=== PATIENT | female | born 1940 | race Caucasian/White ===

== ENCOUNTER → 2016-11-25 | Outpatient (CLI) | payer MEDICARE ==
[~2016-11-25] MED LIST: ALEN70TA3 PO; ALPR0.5T PO; ASPI-482 PO; CALC-98 PO; IOHEXOL 300 MG/ML 100ML VIAL. IV ONE; LORA1TAB47 PO; MESA0.37 PO; MESA1.2T PO; SIMV40TA3 PO; SULF500T7 PO
--- NOTE | 2016-11-25 16:05 | KCIC ---
Examination: CT chest with IV contrast HISTORY History of smoking, chronic cough. COMPARISON None available. TECHNIQUE Axial CT images were performed with IV contrast. Coronal sagittal reformats were performed. Exposure: One or more of the following dose reduction technique were utilized for this examination: 1. Automated exposure control. 2.Adjustment of MA and /or KV according to patient size. 3. Use of iterative reconstruction technique. Findings : The visualized thyroid gland grossly appears unremarkable. The central airways are patent. Mild aortic atherosclerosis. Diffuse coronary artery calcifications. Mild cardiomegaly. No evidence of pericardial effusion. Minimal biapical lung scarring changes identified. Mild emphysematous changes identified in the bilateral lungs. Bibasilar lung atelectasis or scarring changes identified. No evidence of pleural effusion or pneumothorax identified. There is a 4 millimeter pulmonary nodule identified in the right upper lobe of the lung best seen on series 6 image #25. Mild degenerative changes identified in the thoracic spine. There is minimal superior endplate compression change of T11 vertebral body, age indeterminate. The visualized liver, spleen, adrenals grossly appears unremarkable .The visualized pancreas grossly appears unremarkable. Partially visualized prominent appearing common bile duct. IMPRESSION - 4 millimeter pulmonary nodule right upper lobe of the lung. Followup CT chest in 1 year is recommended per Fleischner society guidelines. - Minimal bibasilar lung atelectasis. - Emphysematous changes identified in the bilateral lungs. - Coronary artery calcifications. - Partially visualized prominent appearing common bile duct. Correlate with lab values. - Age indeterminate mild superior endplate compression change of T11 vertebral body. Electronically signed by: Colt Shaw (Nov 25, 2016 16:03:11)
== END | disposition home or self-care (01) ==
LOC: KCIC CT 09:43
PROVIDERS: ATTEND Family Medicine
DX: R05 Cough (principal); F17.210 Nicotine dependence, cigarettes, uncomplicated; J11.1 Influenza due to unidentified influenza virus with other respiratory manifestations
CPT/HCPCS: 71260; 82565; Q9967

== ENCOUNTER → 2017-07-28 | Outpatient (CLI) | payer MEDICARE, OTHER ==
[~2017-07-28] MED LIST changes: -IOHEXOL 300 MG/ML 100ML VIAL. IV ONE; -MESA0.37 PO; +MESA0.372 PO
--- NOTE | 2017-07-28 15:05 | KCIC ---
HAND BILAT 3V Indication: Polyarthralgia. . Chronic pain and swelling of both hands. Comparison: No comparison is available. FINDINGS: Right hand Anterior dislocation of the proximal second phalanx relative to the metacarpal. Asymmetric narrowing of the second DIP joint. Severe primary osteoarthritis at the first carpometacarpal joint. No evidence of acute fracture or bone destruction. Bone demineralization. Left hand Anterior dislocation of the second proximal phalanx relative to the second metacarpal. Mild asymmetric narrowing of the second and third DIP joints Anterior subluxation of the third proximal phalanx relative to the third metacarpal. No evidence of an acute fracture. Generalized bone demineralization. IMPRESSION: 1. Bilateral second metacarpophalangeal joint dislocation. There is also subluxation of the third left MCP joint. 2. Degenerative disease at the DIP joints and at the right carpometacarpal joint. Electronically signed by: Zach Diallo MD (07/28/2017 3:02 PM) [facility]
== END | disposition home or self-care (01) ==
LOC: KCIC 14:08
PROVIDERS: ATTEND Internal Medicine Rheumatology
DX: S63.268A Dislocation of metacarpophalangeal joint of other finger, initial encounter (principal); M19.042 Primary osteoarthritis, left hand; M19.041 Primary osteoarthritis, right hand; X58.XXXA Exposure to other specified factors, initial encounter; Y93.89 Activity, other specified; Y92.89 Other specified places as the place of occurrence of the external cause; Y99.8 Other external cause status
CPT/HCPCS: 73130

== ENCOUNTER 2018-07-01 08:07 | Inpatient (IN) | payer MEDICARE, OTHER ==
[~2018-07-01] VITALS: Ht 154.9 cm; Wt 54.4 kg
[2018-07-01] VITALS (18 sets, daily range): BP systolic 72–99; BP diastolic 38–54
[~2018-07-01 08:07] MED LIST changes: +ASPI325T11 PO; +ATOR40TA59 PO; +CARV6.252 PO; +CLOP75TA PO; +LEVO250T7 PO; +LISI-338 PO
[2018-07-01] MEDS ORDERED: HEPARIN for IV BOLUS 10,000 UNIT/10 ML VIAL. ONE (08:16)
[2018-07-01 08:26] LABS: BASO # 0.2 x10^3/uL (0.0-0.2); BASO % 2 % (0-3); EOS # 0.5 x10^3/uL (0.0-0.7); EOS % 5 % (0-3); HEMATOCRIT 35.5 % (36.0-47.0); LYMPH # 4.4 x10^3/uL (1.0-4.8); LYMPH % 52 % (24-48); MEAN CORPUSCULAR HEMOGLOBIN 34 pg (25-35); MEAN CORPUSCULAR HGB CONC 34 g/dL (31-37); MEAN CORPUSCULAR VOLUME 99 fL (79-100); MONO # 0.5 x10^3/uL (0.0-1.1); MONO % 6 % (0-9); NEUT # 2.9 x10^3uL (1.8-7.7); NEUT % 34 % (31-73); PLATELET COUNT 284 x10^3/uL (140-400); RED BLOOD COUNT 3.57 x10^6/uL (3.50-5.40); RED CELL DISTRIBUTION WIDTH 15.2 % (11.5-14.5); WHITE BLOOD COUNT 8.4 x10^3/uL (4.0-11.0)
--- NOTE | 2018-07-01 08:29 | EKG ---
[facility] [address] [place] [address] Test Date: 2018-07-01 Test Time: 08:08:44 Pat Name: LYDIA RIVERA Department: Room: Gender: F Editor City: : 1940 Requested By: FARHANA FOSS Order Number: [id number] Reading MD: Calvin Holliday MD Measurements Intervals [place] Rate: 91 P: -1 [place]: 126 QRS: -45 QRSD: 184 T: 93 QT: 408 QTc: 504 Interpretive Statements SINUS RHYTHM LBBB Electronically Signed On 07-04-2018 11:23:55 CDT by Calvin Holliday MD
[2018-07-01] MEDS ORDERED: HEPARIN for IV BOLUS 10,000 UNIT/10 ML VIAL. IV ONE (08:30)
--- NOTE | 2018-07-01 08:35 | PHYS DOC ---
Past Medical History Past Medical History: Arthritis, Diverticulitis, High Cholesterol, Heart Disease Past Surgical History: Cholecystectomy Additional Past Surgical Histo: CARDIAC STENT, COLON RESECTION, CATARACTS Alcohol Use: None Drug Use: None Adult General Chief Complaint Chief Complaint: CHEST PAIN HPI HPI 78-year-old female with history of stenting in the past 2 wks presents emergency department today with chest pain and back pain. She arrives by EMS as a code STEMI alert due to EKG performed in the field. She was previously catheterized at our facility with stent placement. She reports having an allergic reaction and stopped taking all of her medication a few days ago. The pain is a pressure sensation that is nonradiating intermittent and mildly alleviated with the nitroglycerin that was given by EMS. EMS gave the patient aspirin and topical nitroglycerin. Review of systems is negative for abdominal pain fevers chills shortness of breath. All other review of systems is negative unless otherwise noted in history of present illness. ED course: 78-year-old female presenting to the emergency department today with chest pain. She was activated as a code STEMI. Dr. Dorado saw the patient immediately upon arrival in the emergency department. He reviewed the patient's EKG and past medical history. Decision was made to take the patient to cardiac catheterization given the patient's pain and recent discontinuation of medications. I had placed orders including a chest x-ray. We are unable to get a chest x-ray prior to sending the patient in the [facility]. I-STAT troponin is mildly positive at 0.02. I spoke to Dr. Rodríguez about the patient who accepts the patient to admission to the intensive care unit. The patient was then admitted for further treatment and care. Review of Systems Review of Systems SEE ABOVE. Current Medications Current Medications Current Medications Medications (Trade) Dose Ordered Sig/Shauna Start Time Stop Time Status Last Admin Dose Admin Bivalirudin (Angiomax) 250 mg STK-MED ONCE 07/01/18 08:37 07/01/18 08:38 DC Heparin Sodium (Porcine) (Heparin Sodium) 4,000 unit 1X ONCE 07/01/18 08:30 07/01/18 08:31 DC Heparin Sodium/ Sodium Chloride 500 ml @ As Directed STK-MED ONCE 07/01/18 08:26 07/01/18 08:27 DC Tirofiban/Sodium Chloride 100 ml @ As Directed STK-MED ONCE 07/01/18 08:54 07/01/18 08:55 DC Allergies Allergies Allergies Coded Allergies Type Severity Reaction Last Updated Verified No Known Drug Allergies 04/22/16 No Physical Exam Physical Exam SEE ABOVE Constitutional: Well developed, well nourished, pt appears uncomfortable but nontoxic. HENT: Normocephalic, atraumatic, bilateral external ears normal, oropharynx moist, no oral exudates, nose normal. [] Eyes: PERRLA, EOMI, conjunctiva normal, no discharge. Neck: Normal range of motion, no tenderness, supple, no stridor. [] Cardiovascular:Heart rate regular rhythm, no murmur [] Lungs & Thorax: Bilateral breath sounds clear to auscultation Abdomen: Bowel sounds normal, soft, no tenderness, no masses, no pulsatile masses. Skin: Warm, dry, no erythema, no rash. [] Back: No tenderness, no CVA tenderness. [] Extremities: No tenderness, no cyanosis, no clubbing, ROM intact, no edema. Neurologic: Alert and oriented X 3, normal motor function, normal sensory function, no focal deficits noted. [] Psychologic: Affect normal, judgement normal, mood normal. [] Current Patient Data Vital Signs Vital Signs Date Time Temp Pulse Resp B/P (MAP) Pulse Ox O2 Delivery O2 Flow Rate FiO2 07/01/18 08:18 114/60 (78) 07/01/18 08:07 97.5 99 16 92 Room Air 97.5 Lab Values Laboratory Tests Test 07/01/18 08:18 White Blood Count 8.4 x10^3/uL (4.0-11.0) Red Blood Count 3.57 x10^6/uL (3.50-5.40) Hemoglobin 12.0 g/dL (12.0-15.5) Hematocrit 35.5 % (36.0-47.0) L Mean Corpuscular Volume 99 fL (79-100) Mean Corpuscular Hemoglobin 34 pg (25-35) Mean Corpuscular Hemoglobin Concent 34 g/dL (31-37) Red Cell Distribution Width 15.2 % (11.5-14.5) H Platelet Count 284 x10^3/uL (140-400) Neutrophils (%) (Auto) 34 % (31-73) Lymphocytes (%) (Auto) 52 % (24-48) H Monocytes (%) (Auto) 6 % (0-9) Eosinophils (%) (Auto) 5 % (0-3) H Basophils (%) (Auto) 2 % (0-3) Neutrophils # (Auto) 2.9 x10^3uL (1.8-7.7) Lymphocytes # (Auto) 4.4 x10^3/uL (1.0-4.8) Monocytes # (Auto) 0.5 x10^3/uL (0.0-1.1) Eosinophils # (Auto) 0.5 x10^3/uL (0.0-0.7) Basophils # (Auto) 0.2 x10^3/uL (0.0-0.2) Prothrombin Time 15.7 SEC (11.7-14.0) H Prothrombin Time INR 1.3 (0.8-1.1) H PTT 28 SEC (24-38) Sodium Level 142 mmol/L (136-145) Potassium Level 3.7 mmol/L (3.5-5.1) Chloride Level 106 mmol/L (98-107) Carbon Dioxide Level 26 mmol/L (21-32) Anion Gap 10 (6-14) Blood Urea Nitrogen 8 mg/dL (7-20) Creatinine 0.6 mg/dL (0.6-1.0) Estimated GFR (Cockcroft-Gault) 96.4 Glucose Level 116 mg/dL (70-99) H Calcium Level 9.4 mg/dL (8.5-10.1) Total Bilirubin 0.6 mg/dL (0.2-1.0) Direct Bilirubin 0.1 mg/dL (0.0-0.2) Aspartate Amino Transferase (AST) 16 U/L (15-37) Alanine Aminotransferase (ALT) 18 U/L (14-59) Alkaline Phosphatase 66 U/L (46-116) POC Troponin I 0.02 ng/ml (<0.08) Troponin I Quantitative 0.033 ng/mL (0.000-0.055) OS-Yub-T-Type Natriuretic Peptide 5831 pg/mL (0-449) H Total Protein 6.5 g/dL (6.4-8.2) Albumin 3.4 g/dL (3.4-5.0) Lipase 190 U/L (73-393) Laboratory Tests 07/01/18 08:18 Laboratory Tests 07/01/18 08:18 EKG EKG EKG obtained and reviewed by myself shows ST segment elevation in leads V1 V2 and V3 V4 V5. This was called as a code STEMI.[] Radiology/Procedures Radiology/Procedures [] Course & Med Decision Making Course & Med Decision Making Pertinent Labs and Imaging studies reviewed. (See chart for details) [] Dragon Disclaimer Dragon Disclaimer This electronic medical record was generated, in whole or in part, using a voice recognition dictation system. Departure Departure Impression: Primary Impression: STEMI (ST elevation myocardial infarction) Disposition: ADMITTED INPATIENT Admitting Physician: Brady Rodríguez Condition: GUARDED Referrals: SHAHID KEARNEY MD (PCP) FARHANA FOSS MD Jul 01, 2018 08:35
[2018-07-01 08:37] LABS: CALCIUM 9.4 mg/dL (8.5-10.1); CREATININE 0.6 mg/dL (0.6-1.0); GFR 96.4; POTASSIUM 3.7 mmol/L (3.5-5.1)
[2018-07-01] MEDS ORDERED: BIVALIRUDIN 250 MG VIAL. IV ONE ×2 (08:37→09:30)
[2018-07-01 08:46] LABS: ALBUMIN 3.4 g/dL (3.4-5.0); DIRECT BILIRUBIN 0.1 mg/dL (0.0-0.2); PROTHROMBIN TIME PATIENT 15.7 SEC (11.7-14.0); TOTAL BILIRUBIN 0.6 mg/dL (0.2-1.0); TOTAL PROTEIN 6.5 g/dL (6.4-8.2)
[2018-07-01] MEDS ORDERED: TIROFIBAN 5MG -0.9% NS 100 ML IV ONE (08:54)
[2018-07-01] MEDS: TIROFIBAN 5MG -0.9% NS 100 ML IV PRN ×2 (08:59→13:24)
[2018-07-01] MEDS ORDERED: PRASUGREL 10 MG TABLET. ONE (09:24)
[2018-07-01] MEDS ORDERED: NITROGLYCERIN 200 MCG/2 ML SYRINGE FOR CATH/VASC LAB. ICAR ONE (09:30)
[2018-07-01] MEDS ORDERED: CONTRAST GIVEN. MC PRN (09:30)
[2018-07-01] MEDS ORDERED: fentaNYL PF VIAL 100 MCG/2 ML VIAL IV ONE (09:30)
[2018-07-01] MEDS ORDERED: IODIXANOL 320 MG/ML 100 ML VIAL. IART ONE (09:30)
[2018-07-01] MEDS ORDERED: PRASUGREL 10 MG TABLET. PO ONE (09:30)
[2018-07-01] MEDS ORDERED: LIDOCAINE 1% Multi-Dose 50 ML VIAL. INJ ONE (09:30)
[2018-07-01] MEDS ORDERED: MIDAZOLAM HCL/PF 2 MG/2 ML VIAL. IV ONE (09:30)
[2018-07-01] MEDS ORDERED: METOPROLOL TARTRATE 5 MG/5 ML VIAL. IVP ONE (09:31)
--- NOTE | 2018-07-01 09:51 | PDOC2 ---
CONSULT Date of Consult Date of Consult DATE: 07/01/18 TIME: 09:51 Reason for Consult Reason for Consult: Chest pain Referring Physician Referring Physician: Dr. Laureano Identification/Chief Complaint Chief Complaint Chest pain Source Source: Chart review, Patient History of Present Illness Reason for Visit: 78-year-old female with history of coronary artery disease who recently underwent PCI/HAN to LAD and PTCA to diagonal branch 06/07/18 presented complaining of chest and back pain that started this morning. EKG obtained in the field showed left bundle branch block and hence code STEMI was activated. Patient also complained of mild associated shortness of breath but denied any orthopnea, palpitations or syncope. Patient has ischemic cardiomyopathy with LVEF 15% and was discharged home on entresto to optimize medical therapy and LifeVest to prevent SCD. She however had angioedema involving face and neck and was started on Benadryl with improvement in symptoms. She was advised to stop taking Entresto but upon further interrogation she stated that she stopped taking all her medications completely, including Plavix. Past Medical History Cardiovascular: CAD, HTN, Hyperlipidemia Pulmonary: Other CENTRAL NERVOUS SYSTEM: Other GI: No pertinent hx Heme/Onc: Cancer Hepatobiliary: Hep A/B/C Psych: Anxiety Musculoskeletal: Osteoarthritis Rheumatologic: Rheumatoid arthritis Infectious disease: No pertinent hx Renal/: No pertinent hx Endocrine: No pertinent hx Past Surgical History Past Surgical History: Cholecystectomy, Cataract Removal, Colon Resection, Other Family History Family History: Stroke Social History ALCOHOL: occassional Drugs: None Lives: Alone Current Problem List Problem List Problems Medical Problems: (1) STEMI (ST elevation myocardial infarction) Status: Acute Current Medications Current Medications Current Medications Heparin Sodium (Porcine) (Heparin Sodium) 10,000 unit STK-MED ONCE .ROUTE ; Start 07/01/18 at 08:16; Stop 07/01/18 at 08:17; Status DC Heparin Sodium (Porcine) (Heparin Sodium) 4,000 unit 1X ONCE IV Last administered on 07/01/18at 08:30; Start 07/01/18 at 08:30; Stop 07/01/18 at 08 :31; Status DC Heparin Sodium/ Sodium Chloride 500 ml @ As Directed STK-MED ONCE .ROUTE ; Start 07/01/18 at 08:26; Stop 07/01/18 at 08:27; Status DC Bivalirudin (Angiomax) 250 mg STK-MED ONCE IV ; Start 07/01/18 at 08:37; Stop 07/01/18 at 08:38; Status DC Tirofiban/Sodium Chloride 100 ml @ As Directed STK-MED ONCE IV ; Start at 08:54; Stop 07/01/18 at 08:55; Status DC Nitroglycerin (Nitroglycerin) 200 mcg 1X ONCE ICAR Last administered on 09:26; Start 07/01/18 at 09:30; Stop 07/01/18 at 09:31; Status DC Heparin Sodium/ Sodium Chloride (HEPARIN for ARTERIAL LINE FLUSH) 1,000 unit 1X ONCE IART Last administered on 07/01/18at 09:26; Start 07/01/18 at 09:30; Stop 07/01/18 at 09:31; Status DC Midazolam HCl (Versed) 1 mg 1X ONCE IV Last administered on 07/01/18at 09:28; Start 07/01/18 at 09:30; Stop 07/01/18 at 09:31; Status DC Fentanyl Citrate (Fentanyl 2ml Vial) 25 mcg 1X ONCE IV Last administered on at 09:27; Start 07/01/18 at 09:30; Stop 07/01/18 at 09:31; Status DC Iodixanol (Visipaque 320) 100 ml 1X ONCE IART Last administered on 07/01/18 09:26; Start 07/01/18 at 09:30; Stop 07/01/18 at 09:31; Status DC Bivalirudin (Angiomax) 250 mg 1X ONCE IV Last administered on 07/01/18at 09:27 ; Start 07/01/18 at 09:30; Stop 07/01/18 at 09:31; Status DC Prasugrel (Effient) 60 mg 1X ONCE PO Last administered on 07/01/18at 09:28; Start 07/01/18 at 09:30; Stop 07/01/18 at 09:31; Status DC Tirofiban/Sodium Chloride 100 ml @ 0 mls/hr CONT PRN IV PER PROTOCOL Last administered on 07/01/18at 08:59; Start 07/01/18 at 09:30; Stop 07/02/18 at 03 :29 Lidocaine HCl (Lidocaine 1% 50ml Vial) 20 ml 1X ONCE INJ Last administered on 07/01/18at 09:26; Start 07/01/18 at 09:30; Stop 07/01/18 at 09:31; Status DC Info (CONTRAST GIVEN -- Rx MONITORING) 1 each PRN DAILY PRN MC SEE COMMENTS; Start 07/01/18 at 09:30; Stop 07/03/18 at 09:29 Prasugrel (Effient) 10 mg STK-MED ONCE .ROUTE ; Start 07/01/18 at 09:24; Stop 07/01/18 at 09:25; Status DC Dopamine HCl/ Dextrose 250 ml @ As Directed STK-MED ONCE IV ; Start 07/01/18 at 09:30; Stop 07/01/18 at 09:31; Status DC Metoprolol Tartrate (Lopressor Vial) 5 mg STK-MED ONCE IVP ; Start 07/01/18 at 09:31; Stop 07/01/18 at 09:32; Status DC Dopamine HCl/ Dextrose 250 ml @ 4.286 mls/ hr CONT PRN IV SEE I/O RECORD; Start 07/01/18 at 09:45 Active Scripts Active Levofloxacin 250 Mg Tablet 250 Mg PO DAILY06 3 Days Atorvastatin Calcium 40 Mg Tablet 40 Mg PO HS Aspirin Ec (Aspirin) 325 Mg Tablet.dr 325 Mg PO DAILYWBKFT 30 Days Lisinopril 5 Mg Tablet 5 Mg PO HS Carvedilol 6.25 Mg Tablet 3.125 Mg PO BIDWMEALS 30 Days Clopidogrel (Clopidogrel Bisulfate) 75 Mg Tablet 75 Mg PO DAILYWBKFT 30 Days Reported Fosamax (Alendronate Sodium) 70 Mg Tablet 70 Mg PO WEEKLY Calcium + Vitamin D Tablet (Calcium Carbonate/Vitamin D3) 1 Each Tablet 1 Each PO Xanax (Alprazolam) 0.5 Mg Tablet 0.5 Mg PO PRN Q6HRS PRN Lialda (Mesalamine) 1.2 Gm Tablet. 1.2 Gm PO Apriso (Mesalamine) 0.375 Gm Cap.er.24h 0.375 Gm PO Allergies Allergies: Coded Allergies: sacubitril (Verified Allergy, Intermediate, Swelling, 07/01/18) facial swelling valsartan (Verified Allergy, Intermediate, Swelling, 07/01/18) facial swelling ROS PSYCHOLOGICAL ROS: No: Hallucinations Eyes: No Loss of vision HEENT: No: Epistaxis Respiratory: YES: Shortness of breath; No: Hemoptysis Cardiovascular: yes Chest Pain Gastrointestinal: No Vomiting Genitourinary: No Hematuria Neurological: No Seizures Skin: No Rash Physical Exam General: Alert, mild distress HEENT: Atraumatic, PERRLA Lungs: Other (bilateral basal crepitations) Heart: Regular rate Abdomen: Soft, No tenderness Extremities: No edema Psych/Mental Status: Mood NL Vitals VITALS Vital Signs Date Time Temp Pulse Resp B/P (MAP) Pulse Ox O2 Delivery O2 Flow Rate FiO2 07/01/18 09:44 73 22 94 Nasal Cannula 4.0 07/01/18 08:18 114/60 (78) 07/01/18 08:07 97.5 97.5 Labs Labs Laboratory Tests Test 07/01/18 08:18 White Blood Count 8.4 x10^3/uL (4.0-11.0) Red Blood Count 3.57 x10^6/uL (3.50-5.40) Hemoglobin 12.0 g/dL (12.0-15.5) Hematocrit 35.5 % (36.0-47.0) Mean Corpuscular Volume 99 fL (79-100) Mean Corpuscular Hemoglobin 34 pg (25-35) Mean Corpuscular Hemoglobin Concent 34 g/dL (31-37) Red Cell Distribution Width 15.2 % (11.5-14.5) Platelet Count 284 x10^3/uL (140-400) Neutrophils (%) (Auto) 34 % (31-73) Lymphocytes (%) (Auto) 52 % (24-48) Monocytes (%) (Auto) 6 % (0-9) Eosinophils (%) (Auto) 5 % (0-3) Basophils (%) (Auto) 2 % (0-3) Neutrophils # (Auto) 2.9 x10^3uL (1.8-7.7) Lymphocytes # (Auto) 4.4 x10^3/uL (1.0-4.8) Monocytes # (Auto) 0.5 x10^3/uL (0.0-1.1) Eosinophils # (Auto) 0.5 x10^3/uL (0.0-0.7) Basophils # (Auto) 0.2 x10^3/uL (0.0-0.2) Prothrombin Time 15.7 SEC (11.7-14.0) Prothromb Time International Ratio 1.3 (0.8-1.1) Activated Partial Thromboplast Time 28 SEC (24-38) Sodium Level 142 mmol/L (136-145) Potassium Level 3.7 mmol/L (3.5-5.1) Chloride Level 106 mmol/L (98-107) Carbon Dioxide Level 26 mmol/L (21-32) Anion Gap 10 (6-14) Blood Urea Nitrogen 8 mg/dL (7-20) Creatinine 0.6 mg/dL (0.6-1.0) Estimated GFR (Cockcroft-Gault) 96.4 Glucose Level 116 mg/dL (70-99) Calcium Level 9.4 mg/dL (8.5-10.1) Total Bilirubin 0.6 mg/dL (0.2-1.0) Direct Bilirubin 0.1 mg/dL (0.0-0.2) Aspartate Amino Transf (AST/SGOT) 16 U/L (15-37) Alanine Aminotransferase (ALT/SGPT) 18 U/L (14-59) Alkaline Phosphatase 66 U/L (46-116) Bedside Troponin I 0.02 ng/ml (<0.08) Troponin I Quantitative 0.033 ng/mL (0.000-0.055) WY-Ntw-Y-Type Natriuretic Peptide 5831 pg/mL (0-449) Total Protein 6.5 g/dL (6.4-8.2) Albumin 3.4 g/dL (3.4-5.0) Lipase 190 U/L (73-393) Laboratory Tests Test 07/01/18 08:18 White Blood Count 8.4 x10^3/uL (4.0-11.0) Red Blood Count 3.57 x10^6/uL (3.50-5.40) Hemoglobin 12.0 g/dL (12.0-15.5) Hematocrit 35.5 % (36.0-47.0) Mean Corpuscular Volume 99 fL (79-100) Mean Corpuscular Hemoglobin 34 pg (25-35) Mean Corpuscular Hemoglobin Concent 34 g/dL (31-37) Red Cell Distribution Width 15.2 % (11.5-14.5) Platelet Count 284 x10^3/uL (140-400) Neutrophils (%) (Auto) 34 % (31-73) Lymphocytes (%) (Auto) 52 % (24-48) Monocytes (%) (Auto) 6 % (0-9) Eosinophils (%) (Auto) 5 % (0-3) Basophils (%) (Auto) 2 % (0-3) Neutrophils # (Auto) 2.9 x10^3uL (1.8-7.7) Lymphocytes # (Auto) 4.4 x10^3/uL (1.0-4.8) Monocytes # (Auto) 0.5 x10^3/uL (0.0-1.1) Eosinophils # (Auto) 0.5 x10^3/uL (0.0-0.7) Basophils # (Auto) 0.2 x10^3/uL (0.0-0.2) Prothrombin Time 15.7 SEC (11.7-14.0) Prothromb Time International Ratio 1.3 (0.8-1.1) Activated Partial Thromboplast Time 28 SEC (24-38) Sodium Level 142 mmol/L (136-145) Potassium Level 3.7 mmol/L (3.5-5.1) Chloride Level 106 mmol/L (98-107) Carbon Dioxide Level 26 mmol/L (21-32) Anion Gap 10 (6-14) Blood Urea Nitrogen 8 mg/dL (7-20) Creatinine 0.6 mg/dL (0.6-1.0) Estimated GFR (Cockcroft-Gault) 96.4 Glucose Level 116 mg/dL (70-99) Calcium Level 9.4 mg/dL (8.5-10.1) Total Bilirubin 0.6 mg/dL (0.2-1.0) Direct Bilirubin 0.1 mg/dL (0.0-0.2) Aspartate Amino Transf (AST/SGOT) 16 U/L (15-37) Alanine Aminotransferase (ALT/SGPT) 18 U/L (14-59) Alkaline Phosphatase 66 U/L (46-116) Bedside Troponin I 0.02 ng/ml (<0.08) Troponin I Quantitative 0.033 ng/mL (0.000-0.055) CQ-Mql-S-Type Natriuretic Peptide 5831 pg/mL (0-449) Total Protein 6.5 g/dL (6.4-8.2) Albumin 3.4 g/dL (3.4-5.0) Lipase 190 U/L (73-393) Assessment/Plan Assessment/Plan 1. Acute myocardial infarction: Patient has history of coronary artery disease with the recent drug-eluting stents placement to the left anterior descending artery and has stopped taking her dual antiplatelet therapy completely. EKG showed left bundle branch block that appears to be her baseline. Clinical picture suspicious for subacute stent thrombosis. We will proceed with emergent cardiac catheterization and possible angioplasty. Risks and benefits were explained and she is agreeable. Start aspirin, heparin, beta blockers and statin. 2. Ischemic cardiomyopathy with probable acute on chronic systolic and diastolic heart failure precipitated by acute myocardial infarction. LVEF 15% on recent 2-D echocardiogram. BNP elevated. We will diurese gently after cardiac catheterization. Resume beta blockers. She had angioedema from entresto. 3. Hyperlipidemia: Statin therapy Critical care time spent evaluating patient and talking to family 40 mins Thank you for your consultation SOHAIL CROCKER MD Jul 01, 2018 09:51
--- NOTE | 2018-07-01 09:51 | PDOC ---
MODERATE SEDATION ASSESSMENT RISKS/ALTERNATIVES Risks/Alternatives Risks and alternatives of this type of sedation and procedure discussed with: RISK/ALTERNATIVES: Patient H & P ON CHART H & P H & P on chart and reviewed for co-morbid conditions and appropriate labs. H&P ON CHART: Yes STATUS PREG STATUS ASSESSED: N/A MEDS/ALLERGIES REVIEWED Meds/Allergies Reviewed Medications and Allergies including time and route of recently administered narcotics and sedatives. MEDS/ALLERGIES REVIEWED: Yes ASA RATING ASA RATING: III AIRWAY ASSESSMENT Airway Assessment Airway patency, oral function limitations, presence of caps, crowns, dentures, partials, and ability to extend neck assessed. AIRWAY ASSESSMENT: Yes MALLAMPATI SCORE MALLAMPATI SCORE: II PRE-SEDATION ASSESSMENT PRE-SEDATION ASSESSMENT: Yes SOHAIL CROCKER MD Jul 01, 2018 09:51
[2018-07-01] MEDS ORDERED: NITROGLYCERIN SUBLINGUAL 0.4 MG BOTTLE OF 25. SL PRN (10:00)
[2018-07-01] MEDS ORDERED: ACETAMINOPHEN 325 MG TABLET. PO PRN (10:00)
--- NOTE | 2018-07-01 10:08 | CARD ---
MR#: [id number] Date of Study: 07/01/2018 Ordering Physician: SOHAIL CROCKER, Referring Physician: NICK HSU Tech: RT Jacinto (R) APPROVED REPORT Technologist: Lolis Rosales RT (R) Nurse: Guillermina Fatima R.N. Procedure(s) performed: 1. Left heart catheterization, selective coronary angiography and left ventr iculography 2. Successful PCI to left anterior descending artery and the diagonal branch Moderate SedationN:68 mins INDICATION The indication(s) include : 78-year-old female who recently underwent PCI/drug eluting stents placeme nt to left anterior descending artery and PTCA to the diagonal branch apparently stopped taking her m edications including Plavix few days ago and presented with chest pain that started this morning. 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 PROCEDURE NARRATIVE After explaining the risks, benefits and alternative options, informed consent was obtained from miguel ent. Patient was brought to the cardiac [facility] and her right groin was prepped and draped in the us ual fashion. 20 mL of 2% lidocaine was infiltrated into the skin and subcutaneous tissues for local a nesthesia. Arterial access was obtained in the right common femoral artery and a [place] sheath was inserted. [place] JL4 and [place] JR4 catheters placed to perform selective angiography of the left and right coronary arteries. [place] pigtail catheter was used to perform left ventriculography. Th e following findings were noted. FINDINGS 1. Hemodynamics: Left ventricle end-diastolic pressure 30 mmHg consistent with clinical picture of acute on chronic diastolic and systolic heart failure. No pullback gradient across the aortic valve. 2. Left ventriculography: Akinesis of the mid to distal anterior wall and the entire apical wall wi th ejection fraction estimated at 15%. 2+ mitral regurgitation seen. 3. Coronary angiography: a. The left main coronary artery arose from the left sinus of Valsalva, gave rise to the left anteri or descending and left circumflex arteries and did not show any significant stenosis. b. The left anterior descending artery showed 100% in-stent occlusion with heavy thrombus burden inv olving the mid and mid to distal segments. c. The left circumflex artery did not show any significant stenosis. d. The right coronary artery was a large and dominant vessel arising from the right sinus of Valsalv a that showed 40% stenosis in the midsegment. INTERVENTION The left main coronary artery was engaged with a 6 [place] EBU 3.5 guide catheter and the complete in- stent occlusion in the left anterior descending artery was crossed with a 0.014 inch [employer] g uidewire. Multiple inflations were then made within the mid and mid to distal segments using 2.5 x 12 mm trek balloon followed by 3.0 x 15 mm noncompliant NC Euphora balloons. The guidewire was then use d to cross into the diagonal branch and the ostium and proximal segments were dilated with a 2.75 x 1 2 mm NC euphora noncompliant balloon. Follow-up angiography showed resolution of the stenosis to 0% w ith good distal flow in the left anterior descending artery and the diagonal branch. Patient tolerate d the procedure well. Hemostasis in the right groin was achieved using Angio-Seal. There were no imme diate complications. Conclusion 1. 100% Complete in-stent occlusion (subacute thrombosis) involving the left anterior descending art geovani most probably from noncompliance with DAPT 2. Akinesis of the mid to distal anterior wall and the entire apical wall with ejection fraction est imated at 15% 3. Successful PTCA to the left anterior descending artery and also the diagonal branch Recommendations 1. Aspirin 325 mg daily 2. Effient 10 mg daily for preferably one year 3. Cardiovascular risk factor modification Signed by : Sohail Crocker, Electronically Approved : 07/01/2018 10:07:23
[2018-07-01] MEDS ORDERED: LIDOCAINE 1% Multi-Dose 50 ML VIAL. ONE (10:10)
[2018-07-01] MEDS ORDERED: MIDAZOLAM HCL/PF 2 MG/2 ML VIAL. ONE (12:31)
[2018-07-01] MEDS ORDERED: fentaNYL PF VIAL 100 MCG/2 ML VIAL ONE (12:31)
[2018-07-01] MEDS: IV 1/2 NORMAL SALINE 1,000 ML IV SCH ×2 (13:23→21:17)
--- NOTE | 2018-07-01 14:06 | PDOC1 ---
History and Physical Date of Admission Date of Admission DATE: 07/01/18 TIME: 14:00 Identification/Chief Complaint Chief Complaint chest pain History of Present Illness History of Present Illness pt is a 78 y.o F who presents here with chest pain. she had a recent PCI to her diagonal and had instent thrombosis after she failed to take her plavix. the patient stopped taking her plavix because according to her passanori nurse told her to stop every medicien because she wasnt feeling well. the patient presented to the ed where she was noted to have ekg changse and likely instent thrombosis. the patient underwent tour manager and the plan is to switch her to effient. the aptietn currently is chest pain free but is anxious. sx are severe ongoing nor adaition no allevation or aggravation. Past Medical History Cardiovascular: CAD, HTN, Hyperlipidemia Pulmonary: Other CENTRAL NERVOUS SYSTEM: Other GI: No pertinent hx Heme/Onc: Cancer Hepatobiliary: Hep A/B/C Psych: Anxiety Musculoskeletal: Osteoarthritis Rheumatologic: Rheumatoid arthritis Infectious disease: No pertinent hx Renal/: No pertinent hx Endocrine: No pertinent hx Past Surgical History Past Surgical History: Cholecystectomy, Cataract Removal, Colon Resection, Other Family History Family History: Stroke Social History ALCOHOL: occassional Drugs: None Current Problem List Problem List Problems Medical Problems: (1) STEMI (ST elevation myocardial infarction) Status: Acute Current Medications Current Medications Current Medications Heparin Sodium (Porcine) (Heparin Sodium) 10,000 unit STK-MED ONCE .ROUTE ; Start 07/01/18 at 08:16; Stop 07/01/18 at 08:17; Status DC Heparin Sodium (Porcine) (Heparin Sodium) 4,000 unit 1X ONCE IV Last administered on 07/01/18at 08:30; Start 07/01/18 at 08:30; Stop 07/01/18 at 08 :31; Status DC Heparin Sodium/ Sodium Chloride 500 ml @ As Directed STK-MED ONCE .ROUTE ; Start 07/01/18 at 08:26; Stop 07/01/18 at 08:27; Status DC Bivalirudin (Angiomax) 250 mg STK-MED ONCE IV ; Start 07/01/18 at 08:37; Stop 07/01/18 at 08:38; Status DC Tirofiban/Sodium Chloride 100 ml @ As Directed STK-MED ONCE IV ; Start at 08:54; Stop 07/01/18 at 08:55; Status DC Nitroglycerin (Nitroglycerin) 200 mcg 1X ONCE ICAR Last administered on 09:26; Start 07/01/18 at 09:30; Stop 07/01/18 at 09:31; Status DC Heparin Sodium/ Sodium Chloride (HEPARIN for ARTERIAL LINE FLUSH) 1,000 unit 1X ONCE IART Last administered on 07/01/18at 09:26; Start 07/01/18 at 09:30; Stop 07/01/18 at 09:31; Status DC Midazolam HCl (Versed) 1 mg 1X ONCE IV Last administered on 07/01/18at 09:28; Start 07/01/18 at 09:30; Stop 07/01/18 at 09:31; Status DC Fentanyl Citrate (Fentanyl 2ml Vial) 25 mcg 1X ONCE IV Last administered on at 09:27; Start 07/01/18 at 09:30; Stop 07/01/18 at 09:31; Status DC Iodixanol (Visipaque 320) 100 ml 1X ONCE IART Last administered on 07/01/18at 09:26; Start 07/01/18 at 09:30; Stop 07/01/18 at 09:31; Status DC Bivalirudin (Angiomax) 250 mg 1X ONCE IV Last administered on 07/01/18at 09:27 ; Start 07/01/18 at 09:30; Stop 07/01/18 at 09:31; Status DC Prasugrel (Effient) 60 mg 1X ONCE PO Last administered on 07/01/18at 09:28; Start 07/01/18 at 09:30; Stop 07/01/18 at 09:31; Status DC Tirofiban/Sodium Chloride 100 ml @ 0 mls/hr CONT PRN IV PER PROTOCOL Last administered on 07/01/18at 13:24; Start 07/01/18 at 09:30; Stop 07/02/18 at 03 :29 Lidocaine HCl (Lidocaine 1% 50ml Vial) 20 ml 1X ONCE INJ Last administered on 07/01/18at 09:26; Start 07/01/18 at 09:30; Stop 07/01/18 at 09:31; Status DC Info (CONTRAST GIVEN -- Rx MONITORING) 1 each PRN DAILY PRN MC SEE COMMENTS; Start 07/01/18 at 09:30; Stop 07/03/18 at 09:29 Prasugrel (Effient) 10 mg STK-MED ONCE .ROUTE ; Start 07/01/18 at 09:24; Stop 07/01/18 at 09:25; Status DC Dopamine HCl/ Dextrose 250 ml @ As Directed STK-MED ONCE IV ; Start 07/01/18 at 09:30; Stop 07/01/18 at 09:31; Status DC Metoprolol Tartrate (Lopressor Vial) 5 mg STK-MED ONCE IVP ; Start 07/01/18 at 09:31; Stop 07/01/18 at 09:32; Status DC Dopamine HCl/ Dextrose 250 ml @ 4.286 mls/ hr CONT PRN IV SEE I/O RECORD; Start 07/01/18 at 09:45 Sodium Chloride 1,000 ml @ 75 mls/hr [id number] IV Last administered on at 13:23; Start 07/01/18 at 10:30 Aspirin (Ecotrin) 325 mg DAILYWBKFT PO ; Start 07/02/18 at 08:00 Prasugrel (Effient) 10 mg DAILYWBKFT PO ; Start 07/02/18 at 08:00 Carvedilol (Coreg) 6.25 mg BIDWMEALS PO ; Start 07/01/18 at 17:00 Atorvastatin Calcium (Lipitor) 40 mg QHS PO ; Start 07/01/18 at 21:00 Acetaminophen (Tylenol) 650 mg PRN Q6HRS PRN PO MILD PAIN / TEMP; Start at 10:00 Nitroglycerin (Nitrostat) 0.4 mg PRN Q5MIN PRN SL CHEST PAIN; Start 07/01/18 at 10:00 Lidocaine HCl (Lidocaine 1% 50ml Vial) 50 ml STK-MED ONCE .ROUTE ; Start at 10:10; Stop 07/01/18 at 10:11; Status DC Heparin Sodium/ Sodium Chloride 500 ml @ As Directed STK-MED ONCE .ROUTE ; Start 07/01/18 at 10:10; Stop 07/01/18 at 10:11; Status DC Fentanyl Citrate (Fentanyl 2ml Vial) 100 mcg STK-MED ONCE .ROUTE ; Start at 12:31; Stop 07/01/18 at 12:32; Status DC Midazolam HCl (Versed) 2 mg STK-MED ONCE .ROUTE ; Start 07/01/18 at 12:31; Stop 07/01/18 at 12:32; Status DC Active Scripts Active Atorvastatin Calcium 40 Mg Tablet 40 Mg PO HS Aspirin Ec (Aspirin) 325 Mg Tablet.dr 325 Mg PO DAILYWBKFT 30 Days Carvedilol 6.25 Mg Tablet 3.125 Mg PO BIDWMEALS 30 Days Reported Calcium + Vitamin D Tablet (Calcium Carbonate/Vitamin D3) 1 Each Tablet 1 Each PO Xanax (Alprazolam) 0.5 Mg Tablet 0.5 Mg PO PRN Q6HRS PRN Allergies Allergies: Coded Allergies: sacubitril (Verified Allergy, Intermediate, Swelling, 07/01/18) facial swelling valsartan (Verified Allergy, Intermediate, Swelling, 07/01/18) facial swelling ROS Review of System CONSTITUTIONAL: No fever or chills EYES: No recent changes SKIN: No rash or itching CARDIOVASCULAR: No chest pain, syncope, palpitations, or edema RESPIRATORY: No SOB or cough GASTROINTESTINAL: No nausea, vomiting or abdominal pain NEUROLOGICAL: No headaches or weakness ENDOCRINE: No cold or heat intolerance GENITOURINARY: No urgency or frequency of urination MUSCULOSKELETAL: No back pain or joint pain LYMPHATICS: No enlarged lymph nodes PSYCHIATRIC: No anxiety or depression Physical Exam Physical Exam GENERAL: No apparent distress. Alert and oriented. HEENT: Head normocephalic, atraumatic. NECK: Supple LUNGS: Clear to auscultation. HEART: RRR, S1, S2 present, pulses intact ABDOMEN: Soft, positive bowel sounds. EXTREMITIES: No cyanosis or edema. NEUROLOGIC: Normal speech, normal tone PSYCHIATRIC: Normal affect, normal mood. SKIN: No ulceration. Vitals Vitals Vital Signs Date Time Temp Pulse Resp B/P (MAP) Pulse Ox O2 Delivery O2 Flow Rate FiO2 07/01/18 13:00 74 20 96/52 (67) 97 Nasal Cannula 4.0 07/01/18 10:00 97.4 97.4 Labs Labs Laboratory Tests Test 07/01/18 08:18 White Blood Count 8.4 x10^3/uL (4.0-11.0) Red Blood Count 3.57 x10^6/uL (3.50-5.40) Hemoglobin 12.0 g/dL (12.0-15.5) Hematocrit 35.5 % (36.0-47.0) Mean Corpuscular Volume 99 fL (79-100) Mean Corpuscular Hemoglobin 34 pg (25-35) Mean Corpuscular Hemoglobin Concent 34 g/dL (31-37) Red Cell Distribution Width 15.2 % (11.5-14.5) Platelet Count 284 x10^3/uL (140-400) Neutrophils (%) (Auto) 34 % (31-73) Lymphocytes (%) (Auto) 52 % (24-48) Monocytes (%) (Auto) 6 % (0-9) Eosinophils (%) (Auto) 5 % (0-3) Basophils (%) (Auto) 2 % (0-3) Neutrophils # (Auto) 2.9 x10^3uL (1.8-7.7) Lymphocytes # (Auto) 4.4 x10^3/uL (1.0-4.8) Monocytes # (Auto) 0.5 x10^3/uL (0.0-1.1) Eosinophils # (Auto) 0.5 x10^3/uL (0.0-0.7) Basophils # (Auto) 0.2 x10^3/uL (0.0-0.2) Prothrombin Time 15.7 SEC (11.7-14.0) Prothromb Time International Ratio 1.3 (0.8-1.1) Activated Partial Thromboplast Time 28 SEC (24-38) Sodium Level 142 mmol/L (136-145) Potassium Level 3.7 mmol/L (3.5-5.1) Chloride Level 106 mmol/L (98-107) Carbon Dioxide Level 26 mmol/L (21-32) Anion Gap 10 (6-14) Blood Urea Nitrogen 8 mg/dL (7-20) Creatinine 0.6 mg/dL (0.6-1.0) Estimated GFR (Cockcroft-Gault) 96.4 Glucose Level 116 mg/dL (70-99) Calcium Level 9.4 mg/dL (8.5-10.1) Total Bilirubin 0.6 mg/dL (0.2-1.0) Direct Bilirubin 0.1 mg/dL (0.0-0.2) Aspartate Amino Transf (AST/SGOT) 16 U/L (15-37) Alanine Aminotransferase (ALT/SGPT) 18 U/L (14-59) Alkaline Phosphatase 66 U/L (46-116) Bedside Troponin I 0.02 ng/ml (<0.08) Troponin I Quantitative 0.033 ng/mL (0.000-0.055) OS-Aax-U-Type Natriuretic Peptide 5831 pg/mL (0-449) Total Protein 6.5 g/dL (6.4-8.2) Albumin 3.4 g/dL (3.4-5.0) Lipase 190 U/L (73-393) Laboratory Tests Test 07/01/18 08:18 White Blood Count 8.4 x10^3/uL (4.0-11.0) Red Blood Count 3.57 x10^6/uL (3.50-5.40) Hemoglobin 12.0 g/dL (12.0-15.5) Hematocrit 35.5 % (36.0-47.0) Mean Corpuscular Volume 99 fL (79-100) Mean Corpuscular Hemoglobin 34 pg (25-35) Mean Corpuscular Hemoglobin Concent 34 g/dL (31-37) Red Cell Distribution Width 15.2 % (11.5-14.5) Platelet Count 284 x10^3/uL (140-400) Neutrophils (%) (Auto) 34 % (31-73) Lymphocytes (%) (Auto) 52 % (24-48) Monocytes (%) (Auto) 6 % (0-9) Eosinophils (%) (Auto) 5 % (0-3) Basophils (%) (Auto) 2 % (0-3) Neutrophils # (Auto) 2.9 x10^3uL (1.8-7.7) Lymphocytes # (Auto) 4.4 x10^3/uL (1.0-4.8) Monocytes # (Auto) 0.5 x10^3/uL (0.0-1.1) Eosinophils # (Auto) 0.5 x10^3/uL (0.0-0.7) Basophils # (Auto) 0.2 x10^3/uL (0.0-0.2) Prothrombin Time 15.7 SEC (11.7-14.0) Prothromb Time International Ratio 1.3 (0.8-1.1) Activated Partial Thromboplast Time 28 SEC (24-38) Sodium Level 142 mmol/L (136-145) Potassium Level 3.7 mmol/L (3.5-5.1) Chloride Level 106 mmol/L (98-107) Carbon Dioxide Level 26 mmol/L (21-32) Anion Gap 10 (6-14) Blood Urea Nitrogen 8 mg/dL (7-20) Creatinine 0.6 mg/dL (0.6-1.0) Estimated GFR (Cockcroft-Gault) 96.4 Glucose Level 116 mg/dL (70-99) Calcium Level 9.4 mg/dL (8.5-10.1) Total Bilirubin 0.6 mg/dL (0.2-1.0) Direct Bilirubin 0.1 mg/dL (0.0-0.2) Aspartate Amino Transf (AST/SGOT) 16 U/L (15-37) Alanine Aminotransferase (ALT/SGPT) 18 U/L (14-59) Alkaline Phosphatase 66 U/L (46-116) Bedside Troponin I 0.02 ng/ml (<0.08) Troponin I Quantitative 0.033 ng/mL (0.000-0.055) LY-Ixr-A-Type Natriuretic Peptide 5831 pg/mL (0-449) Total Protein 6.5 g/dL (6.4-8.2) Albumin 3.4 g/dL (3.4-5.0) Lipase 190 U/L (73-393) VTE Prophylaxis Ordered VTE Prophylaxis Devices: Yes VTE Pharmacological Prophylaxi: Yes Assessment/Plan Assessment/Plan #STEmi - instent thrombosis #HTn #anxiety #HLD #CAD #mod pcm Plan - restart xanax - on aggrastat - angiomax - switching to effient - discussed with patietn regarding taking her meds - pt/ot in am would be beneficial DARCIE QUIROZ MD Jul 01, 2018 14:06
[2018-07-01] MEDS: CARVEDILOL 6.25 MG TABLET. PO SCH (17:00)
[2018-07-01] MEDS ORDERED: ONDANSETRON PF 4 MG/2 ML VIAL. ONE ×2 (20:54→21:00)
[2018-07-01] MEDS ORDERED: ONDANSETRON PF 4 MG/2 ML VIAL. IV PRN (21:00)
[2018-07-01] MEDS: ATORVASTATIN CALCIUM 20 MG TABLET PO SCH (21:17)
[2018-07-01] MEDS: ALPRAZolam 0.5 MG TABLET PO PRN (21:17)
[2018-07-02] VITALS (25 sets, daily range): BP systolic 82–111; BP diastolic 41–58
--- NOTE | 2018-07-02 05:45 | EKG ---
[facility] [address] [place] [address] Test Date: 2018-07-02 Test Time: 04:51:56 Pat Name: LYDIA RIVERA Department: Room: 111 1 Gender: F Behavior Analyst: PHILIP : 1940 Requested By: SOHAIL CROCKER Order Number: [id number] Reading MD: Calvin Holliday MD Measurements Intervals [place] Rate: 93 P: 14 [place]: 134 QRS: -47 QRSD: 166 T: 118 QT: 382 QTc: 478 Interpretive Statements SINUS RHYTHM LBBB PVC PROBABLE PRIOR INFARCT Electronically Signed On 07-04-2018 11:32:46 CDT by Calvin Holliday MD
[2018-07-02] MEDS: CARVEDILOL 6.25 MG TABLET. PO SCH ×2 (08:00→17:00)
[2018-07-02] MEDS: PRASUGREL 10 MG TABLET. PO SCH (08:37)
[2018-07-02] MEDS: ASPIRIN ENTERIC COATED 325 MG TABLET.DR. PO SCH (08:37)
[2018-07-02 10:24] LABS: BASO # 0.1 x10^3/uL (0.0-0.2); BASO % 1 % (0-3); EOS # 0.1 x10^3/uL (0.0-0.7); EOS % 0 % (0-3); HEMATOCRIT 32.4 % (36.0-47.0); HEMOGLOBIN 11.1 g/dL (12.0-15.5); LYMPH # 1.8 x10^3/uL (1.0-4.8); LYMPH % 14 % (24-48); MEAN CORPUSCULAR HEMOGLOBIN 34 pg (25-35); MEAN CORPUSCULAR HGB CONC 34 g/dL (31-37); MEAN CORPUSCULAR VOLUME 98 fL (79-100); MONO # 0.9 x10^3/uL (0.0-1.1); MONO % 7 % (0-9); NEUT % 78 % (31-73); PLATELET COUNT 265 x10^3/uL (140-400); RED CELL DISTRIBUTION WIDTH 14.4 % (11.5-14.5); WHITE BLOOD COUNT 12.8 x10^3/uL (4.0-11.0)
[2018-07-02 10:39] LABS: CALCIUM 8.8 mg/dL (8.5-10.1); CREATININE 0.6 mg/dL (0.6-1.0); GFR 96.4; POTASSIUM 3.3 mmol/L (3.5-5.1)
--- NOTE | 2018-07-02 12:19 | PDOC ---
PROGRESS NOTES Subjective Subjective Patient complained of loss of appetite but denied any chest pain. Objective Objective Vital Signs Date Time Temp Pulse Resp B/P (MAP) Pulse Ox O2 Delivery O2 Flow Rate FiO2 07/02/18 11:00 89 24 103/57 (72) 98 Room Air 07/02/18 08:00 98.4 2.0 98.4 Intake and Output 07/02/18 07:00 Intake Total 2287.3 ml Output Total 775 ml Balance 1512.3 ml Intake Oral 240 ml IV Total 2047.3 ml Output Urine Total 775 ml # Voids 2 Physical Exam Abdomen: Soft, No tenderness Heart: Regular rate Extremities: No edema General: Alert, mild distress HEENT: Atraumatic, PERRLA Lungs: Other (bilateral basal crepitations) Psych/Mental Status: Mood NL Assessment Assessment 1. Coronary artery disease s/p PCI/HAN to LAD presenting with subacute stent thrombosis from stopping DAPT, s/p successful balloon angioplasty, currently chest pain-free. Telemetry did not show any significant arrhythmias. Continue current medical regimen. 2. Ischemic cardiomyopathy with probable acute on chronic systolic and diastolic heart failure precipitated by acute myocardial infarction. LVEF 15% on recent 2-D echocardiogram. She is clinically better compensated. Beta blockers could not be resumed secondary to low blood pressure needing dopamine infusion. We will try intravenous normal saline bolus and try to titrate dopamine off. 3. Hyperlipidemia: Statin therapy Plan Plan of Care Problems Medical Problems: (1) STEMI (ST elevation myocardial infarction) Status: Acute Comment Review of Relevant I have reviewed the following items jm (where applicable) has been applied. Labs Laboratory Tests Test 07/02/18 09:55 White Blood Count 12.8 x10^3/uL (4.0-11.0) Red Blood Count 3.30 x10^6/uL (3.50-5.40) Hemoglobin 11.1 g/dL (12.0-15.5) Hematocrit 32.4 % (36.0-47.0) Mean Corpuscular Volume 98 fL (79-100) Mean Corpuscular Hemoglobin 34 pg (25-35) Mean Corpuscular Hemoglobin Concent 34 g/dL (31-37) Red Cell Distribution Width 14.4 % (11.5-14.5) Platelet Count 265 x10^3/uL (140-400) Neutrophils (%) (Auto) 78 % (31-73) Lymphocytes (%) (Auto) 14 % (24-48) Monocytes (%) (Auto) 7 % (0-9) Eosinophils (%) (Auto) 0 % (0-3) Basophils (%) (Auto) 1 % (0-3) Neutrophils # (Auto) 10.0 x10^3uL (1.8-7.7) Lymphocytes # (Auto) 1.8 x10^3/uL (1.0-4.8) Monocytes # (Auto) 0.9 x10^3/uL (0.0-1.1) Eosinophils # (Auto) 0.1 x10^3/uL (0.0-0.7) Basophils # (Auto) 0.1 x10^3/uL (0.0-0.2) Sodium Level 138 mmol/L (136-145) Potassium Level 3.3 mmol/L (3.5-5.1) Chloride Level 103 mmol/L (98-107) Carbon Dioxide Level 26 mmol/L (21-32) Anion Gap 9 (6-14) Blood Urea Nitrogen 6 mg/dL (7-20) Creatinine 0.6 mg/dL (0.6-1.0) Estimated GFR (Cockcroft-Gault) 96.4 Glucose Level 126 mg/dL (70-99) Calcium Level 8.8 mg/dL (8.5-10.1) Medications Current Medications Alprazolam (Xanax) 0.5 mg PRN Q6HRS PRN PO ANXIETY / AGITATION Last administered on 07/01/18at 21:17; Start 07/01/18 at 14:15 Aspirin (Ecotrin) 325 mg DAILYWBKFT PO Last administered on 07/02/18at 08:37; Start 07/02/18 at 08:00 Atorvastatin Calcium (Lipitor) 40 mg QHS PO Last administered on 07/01/18at 21: 17; Start 07/01/18 at 21:00 Carvedilol (Coreg) 6.25 mg BIDWMEALS PO ; Start 07/01/18 at 17:00 Fentanyl Citrate (Fentanyl 2ml Vial) 100 mcg STK-MED ONCE .ROUTE ; Start at 12:31; Stop 07/01/18 at 12:32; Status DC Midazolam HCl (Versed) 2 mg STK-MED ONCE .ROUTE ; Start 07/01/18 at 12:31; Stop 07/01/18 at 12:32; Status DC Ondansetron HCl (Zofran) 4 mg PRN Q6HRS PRN IV NAUSEA/VOMITING 1ST CHOICE; Start 07/01/18 at 21:00 Ondansetron HCl (Zofran) 4 mg STK-MED ONCE .ROUTE ; Start 07/01/18 at 20:54; Stop 07/01/18 at 20:55; Status DC Prasugrel (Effient) 10 mg DAILYWBKFT PO Last administered on 07/02/18at 08:37; Start 07/02/18 at 08:00 Vitals/I & O Vital Sign - Last 24 Hours 07/01/18 07/01/18 07/01/18 07/01/18 13:00 14:00 15:00 16:00 Temp 98.1 98.1 Pulse 74 91 86 71 Resp 20 24 24 10 B/P (MAP) 96/52 (67) 87/47 (60) 91/53 (66) 81/47 (58) Pulse Ox 97 97 98 99 O2 Delivery Nasal Cannula Nasal Cannula Nasal Cannula Nasal Cannula O2 Flow Rate 4.0 4.0 4.0 4.0 07/01/18 07/01/18 07/01/18 07/01/18 16:00 17:00 17:00 18:00 Pulse 86 94 87 Resp 16 23 B/P (MAP) 94/50 (65) 92/49 92/49 (63) Pulse Ox 98 99 O2 Delivery Nasal Cannula Nasal Cannula Nasal Cannula O2 Flow Rate 4.0 4.0 4.0 07/01/18 07/01/18 07/01/18 07/01/18 19:00 20:00 20:00 21:00 Temp 98.7 98.7 Pulse 82 87 93 Resp 18 20 18 B/P (MAP) 91/46 (61) 93/46 (62) 91/48 (62) Pulse Ox 99 100 97 O2 Delivery Nasal Cannula Nasal Cannula Nasal Cannula Nasal Cannula O2 Flow Rate 4.0 4.0 4.0 3.0 07/01/18 07/01/18 07/02/18 07/02/18 22:00 23:00 00:00 00:00 Temp 98.0 98.0 Pulse 85 89 79 Resp 19 16 17 B/P (MAP) 89/46 (60) 99/52 (68) 90/49 (63) Pulse Ox 100 100 99 O2 Delivery Nasal Cannula Nasal Cannula Nasal Cannula Nasal Cannula O2 Flow Rate 3.0 3.0 3.0 3.0 07/02/18 07/02/18 07/02/18 07/02/18 01:00 02:00 03:00 04:00 Temp 98.3 98.3 Pulse 83 83 93 80 Resp 16 18 17 16 B/P (MAP) 92/49 (63) 93/53 (66) 85/46 (59) 92/47 (62) Pulse Ox 99 98 98 98 O2 Delivery Nasal Cannula Nasal Cannula Nasal Cannula Nasal Cannula O2 Flow Rate 3.0 3.0 3.0 3.0 07/02/18 07/02/18 07/02/18 07/02/18 04:00 05:00 06:00 07:00 Pulse 85 90 86 Resp 20 16 17 B/P (MAP) 82/44 (57) 92/48 (63) 97/46 (63) Pulse Ox 98 96 98 O2 Delivery Nasal Cannula Nasal Cannula Nasal Cannula Nasal Cannula O2 Flow Rate 3.0 3.0 2.0 2.0 07/02/18 07/02/18 07/02/18 07/02/18 08:00 08:00 08:00 09:00 Temp 98.4 98.4 Pulse 84 92 84 Resp 16 16 B/P (MAP) 88/41 96/49 (65) 88/41 (57) Pulse Ox 97 93 O2 Delivery Nasal Cannula Nasal Cannula Room Air O2 Flow Rate 2.0 2.0 07/02/18 07/02/18 10:00 11:00 Pulse 87 89 Resp 16 24 B/P (MAP) 87/50 (62) 103/57 (72) Pulse Ox 96 98 O2 Delivery Room Air Room Air Intake and Output 07/01/18 07/01/18 07/02/18 15:00 23:00 07:00 Intake Total 120 ml 1074 ml 1093.3 ml Output Total 500 ml 275 ml Balance -380 ml 799 ml 1093.3 ml SOHAIL CROCKER MD Jul 02, 2018 12:19
--- NOTE | 2018-07-02 12:58 | PDOC ---
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 HTN Anxiety HLD CAD History of Present Illness History of Present Illness Pt seen and examined in ICU 2 daughters at bedside Pt laying in bed, alert, calm, and cooperative Discussed with RN Vitals Vitals Vital Signs Date Time Temp Pulse Resp B/P (MAP) Pulse Ox O2 Delivery O2 Flow Rate FiO2 07/02/18 12:00 98.4 90 10 104/58 (73) 97 Room Air 98.4 07/02/18 12:00 2.0 Physical Exam General: Alert, No acute distress Heart: Regular rate, Normal S1, Normal S2 Lungs: Clear Abdomen: Soft, No tenderness Extremities: No clubbing, No cyanosis, No edema Skin: No rashes, No breakdown Labs LABS Laboratory Tests Test 07/02/18 09:55 White Blood Count 12.8 x10^3/uL (4.0-11.0) Red Blood Count 3.30 x10^6/uL (3.50-5.40) Hemoglobin 11.1 g/dL (12.0-15.5) Hematocrit 32.4 % (36.0-47.0) Mean Corpuscular Volume 98 fL (79-100) Mean Corpuscular Hemoglobin 34 pg (25-35) Mean Corpuscular Hemoglobin Concent 34 g/dL (31-37) Red Cell Distribution Width 14.4 % (11.5-14.5) Platelet Count 265 x10^3/uL (140-400) Neutrophils (%) (Auto) 78 % (31-73) Lymphocytes (%) (Auto) 14 % (24-48) Monocytes (%) (Auto) 7 % (0-9) Eosinophils (%) (Auto) 0 % (0-3) Basophils (%) (Auto) 1 % (0-3) Neutrophils # (Auto) 10.0 x10^3uL (1.8-7.7) Lymphocytes # (Auto) 1.8 x10^3/uL (1.0-4.8) Monocytes # (Auto) 0.9 x10^3/uL (0.0-1.1) Eosinophils # (Auto) 0.1 x10^3/uL (0.0-0.7) Basophils # (Auto) 0.1 x10^3/uL (0.0-0.2) Sodium Level 138 mmol/L (136-145) Potassium Level 3.3 mmol/L (3.5-5.1) Chloride Level 103 mmol/L (98-107) Carbon Dioxide Level 26 mmol/L (21-32) Anion Gap 9 (6-14) Blood Urea Nitrogen 6 mg/dL (7-20) Creatinine 0.6 mg/dL (0.6-1.0) Estimated GFR (Cockcroft-Gault) 96.4 Glucose Level 126 mg/dL (70-99) Calcium Level 8.8 mg/dL (8.5-10.1) Review of Systems Review of Systems Pt c/o occasional SOA, but denies any fevers, chills, CP, abd pain, or N/V/D Assessment and Plan Assessmemt and Plan Problems Medical Problems: (1) STEMI (ST elevation myocardial infarction) Status: Acute Assessment: EKG changes c/w instent thrombosis, 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 Labs Laboratory Tests Test 07/01/18 08:18 07/01/18 11:00 07/02/18 09:55 White Blood Count 8.4 x10^3/uL (4.0-11.0) 12.8 x10^3/uL (4.0-11.0) Red Blood Count 3.57 x10^6/uL (3.50-5.40) 3.30 x10^6/uL (3.50-5.40) Hemoglobin 12.0 g/dL (12.0-15.5) 11.1 g/dL (12.0-15.5) Hematocrit 35.5 % (36.0-47.0) 32.4 % (36.0-47.0) Mean Corpuscular Volume 99 fL (79-100) 98 fL (79-100) Mean Corpuscular Hemoglobin 34 pg (25-35) 34 pg (25-35) Mean Corpuscular Hemoglobin Concent 34 g/dL (31-37) 34 g/dL (31-37) Red Cell Distribution Width 15.2 % (11.5-14.5) 14.4 % (11.5-14.5) Platelet Count 284 x10^3/uL (140-400) 265 x10^3/uL (140-400) Neutrophils (%) (Auto) 34 % (31-73) 78 % (31-73) Lymphocytes (%) (Auto) 52 % (24-48) 14 % (24-48) Monocytes (%) (Auto) 6 % (0-9) 7 % (0-9) Eosinophils (%) (Auto) 5 % (0-3) 0 % (0-3) Basophils (%) (Auto) 2 % (0-3) 1 % (0-3) Neutrophils # (Auto) 2.9 x10^3uL (1.8-7.7) 10.0 x10^3uL (1.8-7.7) Lymphocytes # (Auto) 4.4 x10^3/uL (1.0-4.8) 1.8 x10^3/uL (1.0-4.8) Monocytes # (Auto) 0.5 x10^3/uL (0.0-1.1) 0.9 x10^3/uL (0.0-1.1) Eosinophils # (Auto) 0.5 x10^3/uL (0.0-0.7) 0.1 x10^3/uL (0.0-0.7) Basophils # (Auto) 0.2 x10^3/uL (0.0-0.2) 0.1 x10^3/uL (0.0-0.2) Prothrombin Time 15.7 SEC (11.7-14.0) Prothromb Time International Ratio 1.3 (0.8-1.1) Activated Partial Thromboplast Time 28 SEC (24-38) Sodium Level 142 mmol/L (136-145) 138 mmol/L (136-145) Potassium Level 3.7 mmol/L (3.5-5.1) 3.3 mmol/L (3.5-5.1) Chloride Level 106 mmol/L (98-107) 103 mmol/L (98-107) Carbon Dioxide Level 26 mmol/L (21-32) 26 mmol/L (21-32) Anion Gap 10 (6-14) 9 (6-14) Blood Urea Nitrogen 8 mg/dL (7-20) 6 mg/dL (7-20) Creatinine 0.6 mg/dL (0.6-1.0) 0.6 mg/dL (0.6-1.0) Estimated GFR (Cockcroft-Gault) 96.4 96.4 Glucose Level 116 mg/dL (70-99) 126 mg/dL (70-99) Calcium Level 9.4 mg/dL (8.5-10.1) 8.8 mg/dL (8.5-10.1) Total Bilirubin 0.6 mg/dL (0.2-1.0) Direct Bilirubin 0.1 mg/dL (0.0-0.2) Aspartate Amino Transf (AST/SGOT) 16 U/L (15-37) Alanine Aminotransferase (ALT/SGPT) 18 U/L (14-59) Alkaline Phosphatase 66 U/L (46-116) Bedside Troponin I 0.02 ng/ml (<0.08) Troponin I Quantitative 0.033 ng/mL (0.000-0.055) RL-Bdn-L-Type Natriuretic Peptide 5831 pg/mL (0-449) Total Protein 6.5 g/dL (6.4-8.2) Albumin 3.4 g/dL (3.4-5.0) Lipase 190 U/L (73-393) Nasal Screen MRSA (PCR) Negative (Negative) Laboratory Tests Test 07/02/18 09:55 White Blood Count 12.8 x10^3/uL (4.0-11.0) Red Blood Count 3.30 x10^6/uL (3.50-5.40) Hemoglobin 11.1 g/dL (12.0-15.5) Hematocrit 32.4 % (36.0-47.0) Mean Corpuscular Volume 98 fL (79-100) Mean Corpuscular Hemoglobin 34 pg (25-35) Mean Corpuscular Hemoglobin Concent 34 g/dL (31-37) Red Cell Distribution Width 14.4 % (11.5-14.5) Platelet Count 265 x10^3/uL (140-400) Neutrophils (%) (Auto) 78 % (31-73) Lymphocytes (%) (Auto) 14 % (24-48) Monocytes (%) (Auto) 7 % (0-9) Eosinophils (%) (Auto) 0 % (0-3) Basophils (%) (Auto) 1 % (0-3) Neutrophils # (Auto) 10.0 x10^3uL (1.8-7.7) Lymphocytes # (Auto) 1.8 x10^3/uL (1.0-4.8) Monocytes # (Auto) 0.9 x10^3/uL (0.0-1.1) Eosinophils # (Auto) 0.1 x10^3/uL (0.0-0.7) Basophils # (Auto) 0.1 x10^3/uL (0.0-0.2) Sodium Level 138 mmol/L (136-145) Potassium Level 3.3 mmol/L (3.5-5.1) Chloride Level 103 mmol/L (98-107) Carbon Dioxide Level 26 mmol/L (21-32) Anion Gap 9 (6-14) Blood Urea Nitrogen 6 mg/dL (7-20) Creatinine 0.6 mg/dL (0.6-1.0) Estimated GFR (Cockcroft-Gault) 96.4 Glucose Level 126 mg/dL (70-99) Calcium Level 8.8 mg/dL (8.5-10.1) Medications Current Medications Heparin Sodium (Porcine) (Heparin Sodium) 10,000 unit STK-MED ONCE .ROUTE ; Start 07/01/18 at 08:16; Stop 07/01/18 at 08:17; Status DC Heparin Sodium (Porcine) (Heparin Sodium) 4,000 unit 1X ONCE IV Last administered on 07/01/18at 08:30; Start 07/01/18 at 08:30; Stop 07/01/18 at 08 :31; Status DC Heparin Sodium/ Sodium Chloride 500 ml @ As Directed STK-MED ONCE .ROUTE ; Start 07/01/18 at 08:26; Stop 07/01/18 at 08:27; Status DC Bivalirudin (Angiomax) 250 mg STK-MED ONCE IV ; Start 07/01/18 at 08:37; Stop 07/01/18 at 08:38; Status DC Tirofiban/Sodium Chloride 100 ml @ As Directed STK-MED ONCE IV ; Start at 08:54; Stop 07/01/18 at 08:55; Status DC Nitroglycerin (Nitroglycerin) 200 mcg 1X ONCE ICAR Last administered on at 09:26; Start 07/01/18 at 09:30; Stop 07/01/18 at 09:31; Status DC Heparin Sodium/ Sodium Chloride (HEPARIN for ARTERIAL LINE FLUSH) 1,000 unit 1X ONCE IART Last administered on 07/01/18 09:26; Start 07/01/18 at 09:30; Stop 07/01/18 at 09:31; Status DC Midazolam HCl (Versed) 1 mg 1X ONCE IV Last administered on 07/01/18 09:28; Start 07/01/18 at 09:30; Stop 07/01/18 at 09:31; Status DC Fentanyl Citrate (Fentanyl 2ml Vial) 25 mcg 1X ONCE IV Last administered on 09:27; Start 07/01/18 at 09:30; Stop 07/01/18 at 09:31; Status DC Iodixanol (Visipaque 320) 100 ml 1X ONCE IART Last administered on 07/01/18 09:26; Start 07/01/18 at 09:30; Stop 07/01/18 at 09:31; Status DC Bivalirudin (Angiomax) 250 mg 1X ONCE IV Last administered on 07/01/18 09:27 ; Start 07/01/18 at 09:30; Stop 07/01/18 at 09:31; Status DC Prasugrel (Effient) 60 mg 1X ONCE PO Last administered on 07/01/18at 09:28; Start 07/01/18 at 09:30; Stop 07/01/18 at 09:31; Status DC Tirofiban/Sodium Chloride 100 ml @ 0 mls/hr CONT PRN IV PER PROTOCOL Last administered on 07/01/18at 13:24; Start 07/01/18 at 09:30; Stop 07/02/18 at 03 :29; Status DC Lidocaine HCl (Lidocaine 1% 50ml Vial) 20 ml 1X ONCE INJ Last administered on 07/01/18at 09:26; Start 07/01/18 at 09:30; Stop 07/01/18 at 09:31; Status DC Info (CONTRAST GIVEN -- Rx MONITORING) 1 each PRN DAILY PRN MC SEE COMMENTS; Start 07/01/18 at 09:30; Stop 07/03/18 at 09:29 Prasugrel (Effient) 10 mg STK-MED ONCE .ROUTE ; Start 07/01/18 at 09:24; Stop 07/01/18 at 09:25; Status DC Dopamine HCl/ Dextrose 250 ml @ As Directed STK-MED ONCE IV ; Start 07/01/18 at 09:30; Stop 07/01/18 at 09:31; Status DC Metoprolol Tartrate (Lopressor Vial) 5 mg STK-MED ONCE IVP ; Start 07/01/18 at 09:31; Stop 07/01/18 at 09:32; Status DC Dopamine HCl/ Dextrose 250 ml @ 4.286 mls/ hr CONT PRN IV SEE I/O RECORD Last administered on 07/02/18at 00:30; Start 07/01/18 at 09:45 Sodium Chloride 1,000 ml @ 75 mls/hr [id number] IV Last administered on at 21:17; Start 07/01/18 at 10:30 Aspirin (Ecotrin) 325 mg DAILYWBKFT PO Last administered on 07/02/18at 08:37; Start 07/02/18 at 08:00 Prasugrel (Effient) 10 mg DAILYWBKFT PO Last administered on 07/02/18at 08:37; Start 07/02/18 at 08:00 Carvedilol (Coreg) 6.25 mg BIDWMEALS PO ; Start 07/01/18 at 17:00 Atorvastatin Calcium (Lipitor) 40 mg QHS PO Last administered on 07/01/18at 21: 17; Start 07/01/18 at 21:00 Acetaminophen (Tylenol) 650 mg PRN Q6HRS PRN PO MILD PAIN / TEMP; Start at 10:00 Nitroglycerin (Nitrostat) 0.4 mg PRN Q5MIN PRN SL CHEST PAIN; Start 07/01/18 at 10:00 Lidocaine HCl (Lidocaine 1% 50ml Vial) 50 ml STK-MED ONCE .ROUTE ; Start at 10:10; Stop 07/01/18 at 10:11; Status DC Heparin Sodium/ Sodium Chloride 500 ml @ As Directed STK-MED ONCE .ROUTE ; Start 07/01/18 at 10:10; Stop 07/01/18 at 10:11; Status DC Fentanyl Citrate (Fentanyl 2ml Vial) 100 mcg STK-MED ONCE .ROUTE ; Start at 12:31; Stop 07/01/18 at 12:32; Status DC Midazolam HCl (Versed) 2 mg STK-MED ONCE .ROUTE ; Start 07/01/18 at 12:31; Stop 07/01/18 at 12:32; Status DC Alprazolam (Xanax) 0.5 mg PRN Q6HRS PRN PO ANXIETY / AGITATION Last administered on 07/01/18at 21:17; Start 07/01/18 at 14:15 Ondansetron HCl (Zofran) 4 mg STK-MED ONCE .ROUTE ; Start 07/01/18 at 20:54; Stop 07/01/18 at 20:55; Status DC Ondansetron HCl (Zofran) 4 mg PRN Q6HRS PRN IV NAUSEA/VOMITING 1ST CHOICE; Start 07/01/18 at 21:00 Active Scripts Active Atorvastatin Calcium 40 Mg Tablet 40 Mg PO HS Aspirin Ec (Aspirin) 325 Mg Tablet.dr 325 Mg PO DAILYWBKFT 30 Days Carvedilol 6.25 Mg Tablet 3.125 Mg PO BIDWMEALS 30 Days Reported Calcium + Vitamin D Tablet (Calcium Carbonate/Vitamin D3) 1 Each Tablet 1 Each PO Xanax (Alprazolam) 0.5 Mg Tablet 0.5 Mg PO PRN Q6HRS PRN Vitals/I & O Vital Sign - Last 24 Hours 07/01/18 07/01/18 07/01/18 07/01/18 13:00 14:00 15:00 16:00 Temp 98.1 98.1 Pulse 74 91 86 71 Resp 20 24 24 10 B/P (MAP) 96/52 (67) 87/47 (60) 91/53 (66) 81/47 (58) Pulse Ox 97 97 98 99 O2 Delivery Nasal Cannula Nasal Cannula Nasal Cannula Nasal Cannula O2 Flow Rate 4.0 4.0 4.0 4.0 07/01/18 07/01/18 07/01/18 07/01/18 16:00 17:00 17:00 18:00 Pulse 86 94 87 Resp 16 23 B/P (MAP) 94/50 (65) 92/49 92/49 (63) Pulse Ox 98 99 O2 Delivery Nasal Cannula Nasal Cannula Nasal Cannula O2 Flow Rate 4.0 4.0 4.0 07/01/18 07/01/18 07/01/18 07/01/18 19:00 20:00 20:00 21:00 Temp 98.7 98.7 Pulse 82 87 93 Resp 18 20 18 B/P (MAP) 91/46 (61) 93/46 (62) 91/48 (62) Pulse Ox 99 100 97 O2 Delivery Nasal Cannula Nasal Cannula Nasal Cannula Nasal Cannula O2 Flow Rate 4.0 4.0 4.0 3.0 07/01/18 07/01/18 07/02/18 07/02/18 22:00 23:00 00:00 00:00 Temp 98.0 98.0 Pulse 85 89 79 Resp 19 16 17 B/P (MAP) 89/46 (60) 99/52 (68) 90/49 (63) Pulse Ox 100 100 99 O2 Delivery Nasal Cannula Nasal Cannula Nasal Cannula Nasal Cannula O2 Flow Rate 3.0 3.0 3.0 3.0 07/02/18 07/02/18 07/02/18 07/02/18 01:00 02:00 03:00 04:00 Temp 98.3 98.3 Pulse 83 83 93 80 Resp 16 18 17 16 B/P (MAP) 92/49 (63) 93/53 (66) 85/46 (59) 92/47 (62) Pulse Ox 99 98 98 98 O2 Delivery Nasal Cannula Nasal Cannula Nasal Cannula Nasal Cannula O2 Flow Rate 3.0 3.0 3.0 3.0 07/02/18 07/02/18 07/02/18 07/02/18 04:00 05:00 06:00 07:00 Pulse 85 90 86 Resp 20 16 17 B/P (MAP) 82/44 (57) 92/48 (63) 97/46 (63) Pulse Ox 98 96 98 O2 Delivery Nasal Cannula Nasal Cannula Nasal Cannula Nasal Cannula O2 Flow Rate 3.0 3.0 2.0 2.0 07/02/18 07/02/18 07/02/18 07/02/18 08:00 08:00 08:00 09:00 Temp 98.4 98.4 Pulse 84 92 84 Resp 16 16 B/P (MAP) 88/41 96/49 (65) 88/41 (57) Pulse Ox 97 93 O2 Delivery Nasal Cannula Nasal Cannula Room Air O2 Flow Rate 2.0 2.0 07/02/18 07/02/18 07/02/18 07/02/18 10:00 11:00 12:00 12:00 Temp 98.4 98.4 Pulse 87 89 90 Resp 16 24 10 B/P (MAP) 87/50 (62) 103/57 (72) 104/58 (73) Pulse Ox 96 98 97 O2 Delivery Room Air Room Air Nasal Cannula Room Air O2 Flow Rate 2.0 Intake and Output 07/01/18 07/01/18 07/02/18 15:00 23:00 07:00 Intake Total 120 ml 1074 ml 1093.3 ml Output Total 500 ml 275 ml Balance -380 ml 799 ml 1093.3 ml NICK HSU III DO Jul 02, 2018 12:58
[2018-07-02] MEDS: IV 1/2 NORMAL SALINE 1,000 ML IV SCH (13:10)
[2018-07-02] MEDS ORDERED: POTASSIUM CHLORIDE 20 MEQ TABLET.ER. PO ONE (13:45)
[2018-07-02] MEDS ORDERED: IV NORMAL SALINE 500ML BAG 500 ML IV ONE (14:00)
[2018-07-02] MEDS: ALPRAZolam 0.5 MG TABLET PO PRN (21:30)
[2018-07-02] MEDS: ATORVASTATIN CALCIUM 20 MG TABLET PO SCH (21:30)
[2018-07-03] VITALS (14 sets, daily range): BP systolic 83–116; BP diastolic 42–65
[2018-07-03] MEDS: CARVEDILOL 6.25 MG TABLET. PO SCH (08:00)
[2018-07-03 08:03] LABS: BASO # 0.1 x10^3/uL (0.0-0.2); BASO % 1 % (0-3); EOS # 0.1 x10^3/uL (0.0-0.7); EOS % 1 % (0-3); HEMATOCRIT 30.1 % (36.0-47.0); HEMOGLOBIN 10.2 g/dL (12.0-15.5); LYMPH # 2.4 x10^3/uL (1.0-4.8); LYMPH % 22 % (24-48); MEAN CORPUSCULAR HEMOGLOBIN 33 pg (25-35); MEAN CORPUSCULAR HGB CONC 34 g/dL (31-37); MEAN CORPUSCULAR VOLUME 98 fL (79-100); MONO # 0.8 x10^3/uL (0.0-1.1); MONO % 7 % (0-9); NEUT # 7.8 x10^3uL (1.8-7.7); NEUT % 70 % (31-73); PLATELET COUNT 224 x10^3/uL (140-400); RED BLOOD COUNT 3.08 x10^6/uL (3.50-5.40); RED CELL DISTRIBUTION WIDTH 14.8 % (11.5-14.5); WHITE BLOOD COUNT 11.2 x10^3/uL (4.0-11.0)
[2018-07-03 08:13] LABS: CALCIUM 8.9 mg/dL (8.5-10.1); CREATININE 0.6 mg/dL (0.6-1.0); GFR 96.4
[2018-07-03] MEDS: PRASUGREL 10 MG TABLET. PO SCH (08:29)
[2018-07-03] MEDS: ASPIRIN ENTERIC COATED 325 MG TABLET.DR. PO SCH (08:29)
--- NOTE | 2018-07-03 11:06 | PDOC ---
PROGRESS NOTES Subjective Subjective Patient denied any chest pain. Wants to go home. Objective Objective Vital Signs Date Time Temp Pulse Resp B/P (MAP) Pulse Ox O2 Delivery O2 Flow Rate FiO2 07/03/18 10:00 85 22 83/42 (56) 96 Room Air 07/03/18 09:00 97.6 97.6 07/03/18 04:00 2.0 Intake and Output 07/03/18 07:00 Intake Total 645 ml Balance 645 ml Intake Oral 340 ml IV Total 305 ml # Voids 6 # Bowel Movements 1 Physical Exam Abdomen: Soft, No tenderness Heart: Regular rate, Normal S1, Normal S2 Extremities: No clubbing, No cyanosis, No edema General: Alert, No acute distress HEENT: Atraumatic, PERRLA Lungs: Other (bilateral basal crepitations) Psych/Mental Status: Mood NL Skin: No rashes, No breakdown Assessment Assessment 1. Coronary artery disease s/p PCI/HAN to LAD presenting with subacute stent thrombosis from stopping DAPT, s/p successful balloon angioplasty, currently chest pain-free. Telemetry did not show any significant arrhythmias. Continue current medical regimen. 2. Ischemic cardiomyopathy with probable acute on chronic systolic and diastolic heart failure precipitated by acute myocardial infarction. LVEF 15% on recent 2-D echocardiogram. She is clinically better compensated. She is currently off dopamine infusion and blood pressure is borderline. We will hold beta blockers for now and consider resuming them as an outpatient. Resume LifeVest upon discharge. 3. Hyperlipidemia: Statin therapy Plan Plan of Care Problems Medical Problems: (1) STEMI (ST elevation myocardial infarction) Status: Acute Comment Review of Relevant I have reviewed the following items jm (where applicable) has been applied. Labs Laboratory Tests Test 07/03/18 07:25 White Blood Count 11.2 x10^3/uL (4.0-11.0) Red Blood Count 3.08 x10^6/uL (3.50-5.40) Hemoglobin 10.2 g/dL (12.0-15.5) Hematocrit 30.1 % (36.0-47.0) Mean Corpuscular Volume 98 fL (79-100) Mean Corpuscular Hemoglobin 33 pg (25-35) Mean Corpuscular Hemoglobin Concent 34 g/dL (31-37) Red Cell Distribution Width 14.8 % (11.5-14.5) Platelet Count 224 x10^3/uL (140-400) Neutrophils (%) (Auto) 70 % (31-73) Lymphocytes (%) (Auto) 22 % (24-48) Monocytes (%) (Auto) 7 % (0-9) Eosinophils (%) (Auto) 1 % (0-3) Basophils (%) (Auto) 1 % (0-3) Neutrophils # (Auto) 7.8 x10^3uL (1.8-7.7) Lymphocytes # (Auto) 2.4 x10^3/uL (1.0-4.8) Monocytes # (Auto) 0.8 x10^3/uL (0.0-1.1) Eosinophils # (Auto) 0.1 x10^3/uL (0.0-0.7) Basophils # (Auto) 0.1 x10^3/uL (0.0-0.2) Sodium Level 141 mmol/L (136-145) Potassium Level 4.0 mmol/L (3.5-5.1) Chloride Level 108 mmol/L (98-107) Carbon Dioxide Level 24 mmol/L (21-32) Anion Gap 9 (6-14) Blood Urea Nitrogen 9 mg/dL (7-20) Creatinine 0.6 mg/dL (0.6-1.0) Estimated GFR (Cockcroft-Gault) 96.4 Glucose Level 91 mg/dL (70-99) Calcium Level 8.9 mg/dL (8.5-10.1) Medications Current Medications Potassium Chloride (Klor-Con) 40 meq 1X ONCE PO Last administered on at 14:15; Start 07/02/18 at 13:45; Stop 07/02/18 at 13:46; Status DC Sodium Chloride 500 ml @ 499.445 mls/hr 1X ONCE IV Last administered on 07/02at 14:00; Start 07/02/18 at 14:00; Stop 07/02/18 at 15:00; Status DC Vitals/I & O Vital Sign - Last 24 Hours 07/02/18 07/02/18 07/02/18 07/02/18 12:00 12:00 13:00 14:00 Temp 98.4 98.4 Pulse 90 94 79 Resp 06 29 18 B/P (MAP) 104/58 (73) 111/47 (68) 94/46 (62) Pulse Ox 97 96 96 O2 Delivery Room Air Room Air Room Air Room Air O2 Flow Rate 07/02/18 07/02/18 07/02/18 07/02/18 14:45 15:00 16:00 16:00 Temp 98.2 98.2 Pulse 91 86 78 Resp 20 16 B/P (MAP) 95/46 (62) 86/41 (56) 95/50 (65) Pulse Ox 95 97 O2 Delivery Room Air Room Air Room Air O2 Flow Rate 07/02/18 07/02/18 07/02/18 07/02/18 17:00 17:00 18:00 19:00 Pulse 93 93 93 92 Resp 18 26 22 B/P (MAP) 91/46 91/46 (61) 86/52 (63) 106/48 (67) Pulse Ox 94 97 96 O2 Delivery Room Air Room Air 07/02/18 07/02/18 07/02/18 07/02/18 20:00 20:00 21:00 22:00 Temp 98.3 98.3 Pulse 92 92 73 Resp 22 17 22 B/P (MAP) 85/47 (60) 98/53 (68) 94/50 (65) Pulse Ox 96 96 98 O2 Delivery Nasal Cannula Room Air Room Air Room Air O2 Flow Rate 07/02/18 07/02/18 07/03/18 07/03/18 23:00 23:59 00:00 01:00 Temp 98.4 98.4 Pulse 73 75 75 Resp 17 20 20 B/P (MAP) 90/55 (67) 88/46 (60) 93/55 (68) Pulse Ox 96 95 95 O2 Delivery Room Air Nasal Cannula Room Air Room Air O2 Flow Rate 2.0 07/03/18 07/03/18 07/03/18 07/03/18 02:00 03:00 04:00 04:00 Temp 98.0 98.0 Pulse 90 84 84 Resp 10 10 12 B/P (MAP) 103/59 (74) 106/56 (73) 92/47 (62) Pulse Ox 95 90 90 O2 Delivery Room Air Room Air Room Air Room Air O2 Flow Rate 2.0 10/28/18 10/28/18 10/28/18 10/28/18 05:00 06:00 07:00 08:00 Pulse 84 84 96 104 Resp 16 19 21 B/P (MAP) 97/50 (66) 105/60 (75) 116/65 (82) 99/59 Pulse Ox 90 90 94 O2 Delivery Room Air Room Air Room Air 07/03/18 07/03/18 07/03/18 07/03/18 08:00 08:00 09:00 10:00 Temp 97.6 97.6 Pulse 105 105 85 Resp 20 22 22 B/P (MAP) 107/63 (78) 94/43 (60) 83/42 (56) Pulse Ox 95 96 96 O2 Delivery Room Air Room Air Room Air Room Air Intake and Output 07/02/18 07/02/18 07/03/18 15:00 23:00 07:00 Intake Total 240 ml 100 ml 305 ml Balance 240 ml 100 ml 305 ml SOHAIL CROCKER MD Jul 03, 2018 11:06
--- NOTE | 2018-07-03 13:18 | PDOC ---
PROGRESS NOTES Chief Complaint Chief Complaint EKG changes c/w instent thrombosis, s/p cork slabs sawyer 07/01/18, negative troponin HTN Anxiety HLD CAD History of Present Illness History of Present Illness Pt seen and examined in ICU [facility] Pt sitting in chair, eating Discussed with RN Vitals Vitals Vital Signs Date Time Temp Pulse Resp B/P (MAP) Pulse Ox O2 Delivery O2 Flow Rate FiO2 07/03/18 13:00 105 23 86/51 (63) 99 Room Air 07/03/18 12:00 98.3 98.3 07/03/18 04:00 2.0 Physical Exam General: Alert, No acute distress Heart: Regular rate, Normal S1, Normal S2 Lungs: Clear Abdomen: Soft, No tenderness Extremities: No clubbing, No cyanosis, No edema Skin: No rashes, No breakdown Labs LABS Laboratory Tests Test 07/03/18 07:25 White Blood Count 11.2 x10^3/uL (4.0-11.0) Red Blood Count 3.08 x10^6/uL (3.50-5.40) Hemoglobin 10.2 g/dL (12.0-15.5) Hematocrit 30.1 % (36.0-47.0) Mean Corpuscular Volume 98 fL (79-100) Mean Corpuscular Hemoglobin 33 pg (25-35) Mean Corpuscular Hemoglobin Concent 34 g/dL (31-37) Red Cell Distribution Width 14.8 % (11.5-14.5) Platelet Count 224 x10^3/uL (140-400) Neutrophils (%) (Auto) 70 % (31-73) Lymphocytes (%) (Auto) 22 % (24-48) Monocytes (%) (Auto) 7 % (0-9) Eosinophils (%) (Auto) 1 % (0-3) Basophils (%) (Auto) 1 % (0-3) Neutrophils # (Auto) 7.8 x10^3uL (1.8-7.7) Lymphocytes # (Auto) 2.4 x10^3/uL (1.0-4.8) Monocytes # (Auto) 0.8 x10^3/uL (0.0-1.1) Eosinophils # (Auto) 0.1 x10^3/uL (0.0-0.7) Basophils # (Auto) 0.1 x10^3/uL (0.0-0.2) Sodium Level 141 mmol/L (136-145) Potassium Level 4.0 mmol/L (3.5-5.1) Chloride Level 108 mmol/L (98-107) Carbon Dioxide Level 24 mmol/L (21-32) Anion Gap 9 (6-14) Blood Urea Nitrogen 9 mg/dL (7-20) Creatinine 0.6 mg/dL (0.6-1.0) Estimated GFR (Cockcroft-Gault) 96.4 Glucose Level 91 mg/dL (70-99) Calcium Level 8.9 mg/dL (8.5-10.1) Review of Systems Review of Systems Pt doing well and ready to go home. Denies any fevers, chills, COPPOLA, CP, SOA, or N /V/D. Assessment and Plan Assessmemt and Plan Problems Medical Problems: (1) STEMI (ST elevation myocardial infarction) Status: Acute Assessment: EKG changes c/w instent thrombosis, s/p cork slabs sawyer 07/01/18, negative troponin HTN Anxiety HLD CAD Plan: Cleared by cardiology Discharge home with rx for Effient QD Follow up with PCP in 1 week Comment Review of Relevant I have reviewed the following items jm (where applicable) has been applied. Labs Laboratory Tests Test 07/02/18 09:55 07/03/18 07:25 White Blood Count 12.8 x10^3/uL (4.0-11.0) 11.2 x10^3/uL (4.0-11.0) Red Blood Count 3.30 x10^6/uL (3.50-5.40) 3.08 x10^6/uL (3.50-5.40) Hemoglobin 11.1 g/dL (12.0-15.5) 10.2 g/dL (12.0-15.5) Hematocrit 32.4 % (36.0-47.0) 30.1 % (36.0-47.0) Mean Corpuscular Volume 98 fL (79-100) 98 fL (79-100) Mean Corpuscular Hemoglobin 34 pg (25-35) 33 pg (25-35) Mean Corpuscular Hemoglobin Concent 34 g/dL (31-37) 34 g/dL (31-37) Red Cell Distribution Width 14.4 % (11.5-14.5) 14.8 % (11.5-14.5) Platelet Count 265 x10^3/uL (140-400) 224 x10^3/uL (140-400) Neutrophils (%) (Auto) 78 % (31-73) 70 % (31-73) Lymphocytes (%) (Auto) 14 % (24-48) 22 % (24-48) Monocytes (%) (Auto) 7 % (0-9) 7 % (0-9) Eosinophils (%) (Auto) 0 % (0-3) 1 % (0-3) Basophils (%) (Auto) 1 % (0-3) 1 % (0-3) Neutrophils # (Auto) 10.0 x10^3uL (1.8-7.7) 7.8 x10^3uL (1.8-7.7) Lymphocytes # (Auto) 1.8 x10^3/uL (1.0-4.8) 2.4 x10^3/uL (1.0-4.8) Monocytes # (Auto) 0.9 x10^3/uL (0.0-1.1) 0.8 x10^3/uL (0.0-1.1) Eosinophils # (Auto) 0.1 x10^3/uL (0.0-0.7) 0.1 x10^3/uL (0.0-0.7) Basophils # (Auto) 0.1 x10^3/uL (0.0-0.2) 0.1 x10^3/uL (0.0-0.2) Sodium Level 138 mmol/L (136-145) 141 mmol/L (136-145) Potassium Level 3.3 mmol/L (3.5-5.1) 4.0 mmol/L (3.5-5.1) Chloride Level 103 mmol/L (98-107) 108 mmol/L (98-107) Carbon Dioxide Level 26 mmol/L (21-32) 24 mmol/L (21-32) Anion Gap 9 (6-14) 9 (6-14) Blood Urea Nitrogen 6 mg/dL (7-20) 9 mg/dL (7-20) Creatinine 0.6 mg/dL (0.6-1.0) 0.6 mg/dL (0.6-1.0) Estimated GFR (Cockcroft-Gault) 96.4 96.4 Glucose Level 126 mg/dL (70-99) 91 mg/dL (70-99) Calcium Level 8.8 mg/dL (8.5-10.1) 8.9 mg/dL (8.5-10.1) Laboratory Tests Test 07/03/18 07:25 White Blood Count 11.2 x10^3/uL (4.0-11.0) Red Blood Count 3.08 x10^6/uL (3.50-5.40) Hemoglobin 10.2 g/dL (12.0-15.5) Hematocrit 30.1 % (36.0-47.0) Mean Corpuscular Volume 98 fL (79-100) Mean Corpuscular Hemoglobin 33 pg (25-35) Mean Corpuscular Hemoglobin Concent 34 g/dL (31-37) Red Cell Distribution Width 14.8 % (11.5-14.5) Platelet Count 224 x10^3/uL (140-400) Neutrophils (%) (Auto) 70 % (31-73) Lymphocytes (%) (Auto) 22 % (24-48) Monocytes (%) (Auto) 7 % (0-9) Eosinophils (%) (Auto) 1 % (0-3) Basophils (%) (Auto) 1 % (0-3) Neutrophils # (Auto) 7.8 x10^3uL (1.8-7.7) Lymphocytes # (Auto) 2.4 x10^3/uL (1.0-4.8) Monocytes # (Auto) 0.8 x10^3/uL (0.0-1.1) Eosinophils # (Auto) 0.1 x10^3/uL (0.0-0.7) Basophils # (Auto) 0.1 x10^3/uL (0.0-0.2) Sodium Level 141 mmol/L (136-145) Potassium Level 4.0 mmol/L (3.5-5.1) Chloride Level 108 mmol/L (98-107) Carbon Dioxide Level 24 mmol/L (21-32) Anion Gap 9 (6-14) Blood Urea Nitrogen 9 mg/dL (7-20) Creatinine 0.6 mg/dL (0.6-1.0) Estimated GFR (Cockcroft-Gault) 96.4 Glucose Level 91 mg/dL (70-99) Calcium Level 8.9 mg/dL (8.5-10.1) Medications Current Medications Heparin Sodium (Porcine) (Heparin Sodium) 10,000 unit STK-MED ONCE .ROUTE ; Start 07/01/18 at 08:16; Stop 07/01/18 at 08:17; Status DC Heparin Sodium (Porcine) (Heparin Sodium) 4,000 unit 1X ONCE IV Last administered on 07/01/18at 08:30; Start 07/01/18 at 08:30; Stop 07/01/18 at 08 :31; Status DC Heparin Sodium/ Sodium Chloride 500 ml @ As Directed STK-MED ONCE .ROUTE ; Start 07/01/18 at 08:26; Stop 07/01/18 at 08:27; Status DC Bivalirudin (Angiomax) 250 mg STK-MED ONCE IV ; Start 07/01/18 at 08:37; Stop 07/01/18 at 08:38; Status DC Tirofiban/Sodium Chloride 100 ml @ As Directed STK-MED ONCE IV ; Start at 08:54; Stop 07/01/18 at 08:55; Status DC Nitroglycerin (Nitroglycerin) 200 mcg 1X ONCE ICAR Last administered on at 09:26; Start 07/01/18 at 09:30; Stop 07/01/18 at 09:31; Status DC Heparin Sodium/ Sodium Chloride (HEPARIN for ARTERIAL LINE FLUSH) 1,000 unit 1X ONCE IART Last administered on 07/01/18at 09:26; Start 07/01/18 at 09:30; Stop 07/01/18 at 09:31; Status DC Midazolam HCl (Versed) 1 mg 1X ONCE IV Last administered on 07/01/18at 09:28; Start 07/01/18 at 09:30; Stop 07/01/18 at 09:31; Status DC Fentanyl Citrate (Fentanyl 2ml Vial) 25 mcg 1X ONCE IV Last administered on at 09:27; Start 07/01/18 at 09:30; Stop 07/01/18 at 09:31; Status DC Iodixanol (Visipaque 320) 100 ml 1X ONCE IART Last administered on 07/01/18at 09:26; Start 07/01/18 at 09:30; Stop 07/01/18 at 09:31; Status DC Bivalirudin (Angiomax) 250 mg 1X ONCE IV Last administered on 07/01/18at 09:27 ; Start 07/01/18 at 09:30; Stop 07/01/18 at 09:31; Status DC Prasugrel (Effient) 60 mg 1X ONCE PO Last administered on 07/01/18at 09:28; Start 07/01/18 at 09:30; Stop 07/01/18 at 09:31; Status DC Tirofiban/Sodium Chloride 100 ml @ 0 mls/hr CONT PRN IV PER PROTOCOL Last administered on 07/01/18at 13:24; Start 07/01/18 at 09:30; Stop 07/02/18 at 03 :29; Status DC Lidocaine HCl (Lidocaine 1% 50ml Vial) 20 ml 1X ONCE INJ Last administered on 07/01/18at 09:26; Start 07/01/18 at 09:30; Stop 07/01/18 at 09:31; Status DC Info (CONTRAST GIVEN -- Rx MONITORING) 1 each PRN DAILY PRN MC SEE COMMENTS; Start 07/01/18 at 09:30; Stop 07/03/18 at 09:29; Status DC Prasugrel (Effient) 10 mg STK-MED ONCE .ROUTE ; Start 07/01/18 at 09:24; Stop 07/01/18 at 09:25; Status DC Dopamine HCl/ Dextrose 250 ml @ As Directed STK-MED ONCE IV ; Start 07/01/18 at 09:30; Stop 07/01/18 at 09:31; Status DC Metoprolol Tartrate (Lopressor Vial) 5 mg STK-MED ONCE IVP ; Start 07/01/18 at 09:31; Stop 07/01/18 at 09:32; Status DC Dopamine HCl/ Dextrose 250 ml @ 4.286 mls/ hr CONT PRN IV SEE I/O RECORD Last administered on 07/02/18at 13:37; Start 07/01/18 at 09:45 Sodium Chloride 1,000 ml @ 75 mls/hr [id number] IV Last administered on at 21:17; Start 07/01/18 at 10:30; Stop 07/02/18 at 13:46; Status DC Aspirin (Ecotrin) 325 mg DAILYWBKFT PO Last administered on 07/03/18at 08:29; Start 07/02/18 at 08:00 Prasugrel (Effient) 10 mg DAILYWBKFT PO Last administered on 07/03/18at 08:29; Start 07/02/18 at 08:00 Carvedilol (Coreg) 6.25 mg BIDWMEALS PO ; Start 07/01/18 at 17:00 Atorvastatin Calcium (Lipitor) 40 mg QHS PO Last administered on 07/02/18at 21: 30; Start 07/01/18 at 21:00 Acetaminophen (Tylenol) 650 mg PRN Q6HRS PRN PO MILD PAIN / TEMP; Start at 10:00 Nitroglycerin (Nitrostat) 0.4 mg PRN Q5MIN PRN SL CHEST PAIN; Start 07/01/18 at 10:00 Lidocaine HCl (Lidocaine 1% 50ml Vial) 50 ml STK-MED ONCE .ROUTE ; Start at 10:10; Stop 07/01/18 at 10:11; Status DC Heparin Sodium/ Sodium Chloride 500 ml @ As Directed STK-MED ONCE .ROUTE ; Start 07/01/18 at 10:10; Stop 07/01/18 at 10:11; Status DC Fentanyl Citrate (Fentanyl 2ml Vial) 100 mcg STK-MED ONCE .ROUTE ; Start at 12:31; Stop 07/01/18 at 12:32; Status DC Midazolam HCl (Versed) 2 mg STK-MED ONCE .ROUTE ; Start 07/01/18 at 12:31; Stop 07/01/18 at 12:32; Status DC Alprazolam (Xanax) 0.5 mg PRN Q6HRS PRN PO ANXIETY / AGITATION Last administered on 07/02/18at 21:30; Start 07/01/18 at 14:15 Ondansetron HCl (Zofran) 4 mg STK-MED ONCE .ROUTE ; Start 07/01/18 at 20:54; Stop 07/01/18 at 20:55; Status DC Ondansetron HCl (Zofran) 4 mg PRN Q6HRS PRN IV NAUSEA/VOMITING 1ST CHOICE; Start 07/01/18 at 21:00 Potassium Chloride (Klor-Con) 40 meq 1X ONCE PO Last administered on at 14:15; Start 07/02/18 at 13:45; Stop 07/02/18 at 13:46; Status DC Sodium Chloride 500 ml @ 499.445 mls/hr 1X ONCE IV Last administered on 07/02at 14:00; Start 07/02/18 at 14:00; Stop 07/02/18 at 15:00; Status DC Active Scripts Active Atorvastatin Calcium 40 Mg Tablet 40 Mg PO HS Aspirin Ec (Aspirin) 325 Mg Tablet.dr 325 Mg PO DAILYWBKFT 30 Days Carvedilol 6.25 Mg Tablet 3.125 Mg PO BIDWMEALS 30 Days Reported Calcium + Vitamin D Tablet (Calcium Carbonate/Vitamin D3) 1 Each Tablet 1 Each PO Xanax (Alprazolam) 0.5 Mg Tablet 0.5 Mg PO PRN Q6HRS PRN Vitals/I & O Vital Sign - Last 24 Hours 07/02/18 07/02/18 07/02/18 07/02/18 14:00 14:45 15:00 16:00 Temp 98.2 98.2 Pulse 79 91 86 78 Resp 18 20 16 B/P (MAP) 94/46 (62) 95/46 (62) 86/41 (56) 95/50 (65) Pulse Ox 96 95 97 O2 Delivery Room Air Room Air Room Air 07/02/18 07/02/18 07/02/18 07/02/18 16:00 17:00 17:00 18:00 Pulse 93 93 93 Resp 18 26 B/P (MAP) 91/46 91/46 (61) 86/52 (63) Pulse Ox 94 97 O2 Delivery Room Air Room Air O2 Flow Rate 07/02/18 07/02/18 07/02/18 07/02/18 19:00 20:00 20:00 21:00 Temp 98.3 98.3 Pulse 92 92 92 Resp 22 22 17 B/P (MAP) 106/48 (67) 85/47 (60) 98/53 (68) Pulse Ox 96 96 96 O2 Delivery Room Air Nasal Cannula Room Air Room Air O2 Flow Rate 07/02/18 07/02/18 07/02/18/28/18 22:00 23:00 23:59 00:00 Temp 98.4 98.4 Pulse 73 73 75 Resp 22 17 20 B/P (MAP) 94/50 (65) 90/55 (67) 88/46 (60) Pulse Ox 98 96 95 O2 Delivery Room Air Room Air Nasal Cannula Room Air O2 Flow Rate 2.0 07/03/18 07/03/18 07/03/18 07/03/18 01:00 02:00 03:00 04:00 Pulse 75 90 84 Resp 20 10 10 B/P (MAP) 93/55 (68) 103/59 (74) 106/56 (73) Pulse Ox 95 95 90 O2 Delivery Room Air Room Air Room Air Room Air O2 Flow Rate 2.0 07/03/18 07/03/18 07/03/18 07/03/18 04:00 05:00 06:00 07:00 Temp 98.0 98.0 Pulse 84 84 84 96 Resp 12 16 19 21 B/P (MAP) 92/47 (62) 97/50 (66) 105/60 (75) 116/65 (82) Pulse Ox 90 90 90 94 O2 Delivery Room Air Room Air Room Air Room Air 07/03/18 07/03/18 07/03/18 07/03/18 08:00 08:00 08:00 09:00 Temp 97.6 97.6 Pulse 104 105 105 Resp 20 22 B/P (MAP) 99/59 107/63 (78) 94/43 (60) Pulse Ox 95 96 O2 Delivery Room Air Room Air Room Air 07/03/18 07/03/18 07/03/18 07/03/18 10:00 11:00 12:00 12:00 Temp 98.3 98.3 Pulse 85 87 97 Resp 22 22 25 B/P (MAP) 83/42 (56) 100/58 (72) 103/65 (78) Pulse Ox 96 96 96 O2 Delivery Room Air Room Air Room Air Room Air 07/03/18 13:00 Pulse 105 Resp 23 B/P (MAP) 86/51 (63) Pulse Ox 99 O2 Delivery Room Air Intake and Output 07/02/18 07/02/18 07/03/18 15:00 23:00 07:00 Intake Total 240 ml 100 ml 305 ml Balance 240 ml 100 ml 305 ml CASTLE,NIAL K III DO Jul 03, 2018 13:18
== END 2018-07-03 13:35 | disposition home or self-care (01) | DRG 250 ==
LOC: ER 08:07 → 1 WEST ICU 08:24
PROVIDERS: ADMIT Internal Medicine; ATTEND Internal Medicine
PROC: 4A023N7 Measurement of Cardiac Sampling and Pressure, Left Heart, Percutaneous Approach (ICD-10-PCS; principal; 2018-07-01)
PROC: 02713ZZ Dilation of Coronary Artery, Two Arteries, Percutaneous Approach (ICD-10-PCS; 2018-07-01)
PROC: B2151ZZ Fluoroscopy of Left Heart using Low Osmolar Contrast (ICD-10-PCS; 2018-07-01)
PROC: B2111ZZ Fluoroscopy of Multiple Coronary Arteries using Low Osmolar Contrast (ICD-10-PCS; 2018-07-01)
DX: T82.867A Thrombosis due to cardiac prosthetic devices, implants and grafts, initial encounter (principal); I21.3 ST elevation (STEMI) myocardial infarction of unspecified site; I50.43 Acute on chronic combined systolic (congestive) and diastolic (congestive) heart failure; I25.10 Atherosclerotic heart disease of native coronary artery without angina pectoris; I11.0 Hypertensive heart disease with heart failure; E78.5 Hyperlipidemia, unspecified; F41.9 Anxiety disorder, unspecified; M19.90 Unspecified osteoarthritis, unspecified site; M06.9 Rheumatoid arthritis, unspecified; Z98.49 Cataract extraction status, unspecified eye; Z82.3 Family history of stroke; I25.5 Ischemic cardiomyopathy; Y83.1 Surgical operation with implant of artificial internal device as the cause of abnormal reaction of the patient, or of later complication, without mention of misadventure at the time of the procedure; E78.00 Pure hypercholesterolemia, unspecified; I44.7 Left bundle-branch block, unspecified
CPT/HCPCS: 36415; 80048; 80076; 83690; 83735; 83880; 84484; 85025; 85610; 85730; 87641; 92921; 92941; 93005; 93458; 99152; 99153; C1725; C1769; C1771; C1887; C1892; G0269; J0583; J1265; J1644; J2250; J2405; J3010; J3490; J7040; 97116; 99285-25; J3246